=== PATIENT | male | born 1960 | race Caucasian/White ===

== ENCOUNTER → 2016-11-27 | Outpatient (CLI) | payer OTHER ==
--- NOTE | 2016-11-27 10:40 | CT ---
CT Left Lower Extremity With Attention to the Knee Indication: Pain. Preoperative evaluation for left total knee replacement. Technique: Spiral imaging was obtained through the left knee at 1.25 mm slice thickness along with sp iral imaging through the left hip and left ankle at 2.5 mm slice thickness. Data was transmitted for subsequent KELIN knee replacement. CT dose reduction techniques utilized. Findings: Left Hip: Mild osteoarthritic changes. Left Knee: Severe medial joint space narrowing with bone on bone contact and osteophytes. Moderate la teral joint space narrowing and moderate patellofemoral osteoarthritic changes. There is a Benton cyst posteriorly. Left Ankle: Mild osteoarthritic changes. Impression: 1. Severe medial joint space narrowing left knee and bone on bone changes. Moderate lateral joint spa ce narrowing left knee and patellofemoral osteoarthritic changes. 2. Data was transmitted for KELIN knee replacement surgery.
== END ==
LOC: FIMAGING 09:33
PROVIDERS: ATTEND Orthopaedic Surgery
DX: Z01.818 Encounter for other preprocedural examination (principal); M17.9 Osteoarthritis of knee, unspecified

== ENCOUNTER 2016-12-12 08:08 | Inpatient (IN) | payer OTHER ==
[2016-11-26 16:25] LABS: % IMMATURE GRANULYOCYTES 0.7 % (0.0-1.1); ABSOLUTE IMMATURE GRANULOCYTES 0.07 10^3/uL (0.00-0.10); ADD DIFF? NO; ADD MORPH? NO; ADD SCAN? NO; ATYPICAL LYMPHOCYTE FLAG 0 (0-99); FRAGMENT RBC FLAG 0 (0-99); HEMOGLOBIN 18.3 g/dL (13.7-17.5); LEFT SHIFT FLG 0 (0-99); LIPEMIA HEMOLYSIS FLAG 90 (0-99); MEAN CELL HEMOGLOBIN 35.2 pg (27.9-34.1); MEAN CELL HEMOGLOBIN CONCENTR. 36.6 g/dL (32.4-36.7); MEAN CELL VOLUME 96.2 fL (81.5-99.8); MEAN PLATELET VOLUME 9.8 fL (8.7-11.7); PLATELET CLUMPS FLAG 10 (0-99); PLATELET COUNT 195 10^3/uL (150-400); RED CELL DISTRIBUTION WIDTH 12.9 % (11.5-15.2)
[2016-11-26 16:49] LABS: ANION GAP 13 mEq/L (8-16); CALCIUM 10.2 mg/dL (8.5-10.4); CARBON DIOXIDE 27 mEq/l (22-31); CHLORIDE 99 mEq/L (97-110); CREATININE 0.7 mg/dL (0.7-1.3); GLOMERULAR FILTRATION RATE > 60; GLUCOSE 106 mg/dL (70-100); POTASSIUM 3.4 mEq/L (3.5-5.2); SODIUM 139 mEq/L (134-144)
[~2016-12-12 08:08] MED LIST: ACETAMINOPHEN 325 MG TAB PO ONE; CEFAZOLIN 2 GM/DEXTR 100 ML IV ONE; CHLORHEXIDINE GLUC HIBICLENS 118 ML BTL TP ONE; DEXAMETHASONE 4 MG/ML VIAL IVP ONE; FAMOTIDINE 20 MG TAB PO ONE; ROPI/epiNEPH/KETOROLAC JOINT COCKTAIL IU ONE; SKIN ADHESIVE (DERMABOND) 1 EACH TP ONE; TRANEXAMIC ACID 3,000 MG in NS 50 ML IRR ONE; TRANEXAMIC ACID 3,000 MG/50 ML BAG IRR ONE; VANCOMYCIN 1 GM VIAL IV ONE
[2016-12-12] MEDS ORDERED: LR 1,000 ML IV ONE (08:51)
[2016-12-12] MEDS ORDERED: LIDOCAINE 1% 5 ML SDV ID PRN (08:51)
[2016-12-12] MEDS ORDERED: CHLORHEXIDINE GLUC HIBICLENS 118 ML BTL TP ONE (09:30)
[2016-12-12] MEDS ORDERED: FAMOTIDINE 20 MG TAB PO ONE (09:30)
[2016-12-12] MEDS ORDERED: CEFAZOLIN 2 GM/DEXTR 100 ML IV ONE (09:30)
[2016-12-12] MEDS ORDERED: ACETAMINOPHEN 325 MG TAB PO ONE (09:30)
[2016-12-12] MEDS ORDERED: DEXAMETHASONE 4 MG/ML VIAL IVP ONE (09:30)
[2016-12-12 10:10] LABS: HEMOGLOBIN A1C 5.9 % (4.0-6.0)
[2016-12-12] MEDS ORDERED: MIDAZOLAM 2 MG/2 ML VIAL ONE (10:22)
[2016-12-12] MEDS ORDERED: LIDOCAINE 2% 5 ML SDV ONE (10:44)
[2016-12-12] MEDS ORDERED: PROPOFOL/EMULSION 500 MG/50 ML BOTTLE IV ONE ×2 (10:44→12:02)
[2016-12-12] MEDS ORDERED: fentaNYL 100 MCG/2 ML INJ ONE (11:00)
[2016-12-12] MEDS ORDERED: TEMAZEPAM 15 MG CAP PO PRN (12:08)
[2016-12-12] MEDS ORDERED: LACTULOSE 20 GM/30 ML UDCUP PO PRN (12:08)
[2016-12-12] MEDS ORDERED: MAGNESIUM HYDROXIDE 30 ML UDCUP PO PRN (12:08)
[2016-12-12] MEDS ORDERED: DIPHENOXYLATE/ATROPINE LOMOTIL 1 TAB PO PRN (12:08)
[2016-12-12] MEDS ORDERED: BISACODYL 10 MG SUPP PR PRN (12:08)
[2016-12-12] MEDS ORDERED: CYCLOBENZAPRINE 10 MG TAB PO PRN (12:08)
[2016-12-12] MEDS ORDERED: PROMETHAZINE HCL 25 MG/ML INJ IVP PRN (12:08)
[2016-12-12] MEDS ORDERED: PHARMACY PAIN CONSULT 1 EA MISC PRN (12:08)
[2016-12-12] MEDS ORDERED: ONDANSETRON 4 MG/2 ML VIAL IVP PRN (12:08)
[2016-12-12] MEDS ORDERED: diphenhydrAMINE 25 MG CAP PO PRN (12:08)
[2016-12-12] MEDS ORDERED: PROMETHAZINE HCL 25 MG SUPPR PR PRN (12:08)
[2016-12-12] MEDS ORDERED: METOCLOPRAMIDE 10 MG/2 ML VIAL IVP PRN (12:08)
[2016-12-12] MEDS ORDERED: ONDANSETRON DISINTEGRATING 4 MG TAB PO PRN (12:08)
[2016-12-12] MEDS ORDERED: POLYETHYLENE GLYCOL 3350 17 GM PKT PO PRN (12:08)
--- NOTE | 2016-12-12 12:08 | POSTOPPROG ---
Post Op Note Date of Operation: 12/12/16 Surgeon: Lola Yao Online Media Director: lulu yao Anesthesiologist: dr. redmond warm Anesthesia: Spinal, Other (Specify) (adductor canal block) Pre-op Diagnosis: left knee OA Post-op Diagnosis: same Indication: left knee pain due to OA that failed conservative measures Procedure: L medial knee arthroplasty, robot assisted Findings: severe medial knee OA Inf/Abcess present in the surg proc area at time of surgery?: No EBL: 50-100
[2016-12-12] MEDS ORDERED: LR 1,000 ML IV SCH (12:30)
--- NOTE | 2016-12-12 13:49 | DX ---
Left knee, 2 views. HISTORY: left knee pain. Status post left knee arthroplasty. Post operative evaluation. FINDINGS: Postsurgical changes as seen of a left total knee arthroplasty. There is good alignment in appearance. No evidence for periprosthetic lucency or fracture. There is appropriate soft tissue lange ge for the immediate postsurgical appearance. IMPRESSION: Post surgical changes of left total knee arthroplasty with good alignment and appearance.
[2016-12-12] MEDS ORDERED: ceFAZolin 2 GM/DEXTROSE 100 ML IV SCH (14:00)
[2016-12-12] MEDS: oxyCODONE IR 5 MG TAB PO PRN ×3 (15:12→23:48)
[2016-12-12] MEDS ORDERED: RED WINE 120 ML BOTTLE PO SCH (18:00)
[2016-12-12] MEDS: ACETAMINOPHEN 325 MG TAB PO SCH ×2 (18:27→23:46)
[2016-12-12] MEDS: ceFAZolin 2 GM/DEXTROSE 100 ML IV SCH (18:28)
[2016-12-12] MEDS: SENNOSIDES/DOCUSATE SODIUM TAB PO SCH (20:07)
[2016-12-12] MEDS: ASPIRIN 325 MG TAB PO SCH (20:07)
[2016-12-12] MEDS: GABAPENTIN 300 MG CAP PO SCH (20:07)
[2016-12-12] MEDS: HYOSCYAMINE SULFATE 0.375 MG TAB.SR PO SCH (20:07)
[2016-12-12] MEDS: FAMOTIDINE 20 MG TAB PO SCH (20:07)
[2016-12-12] MEDS ORDERED: INSULIN GLARGINE 100 UNITS/ML SYRINGE SC SCH (21:00)
[2016-12-12] MEDS ORDERED: OLANZapine 2.5 MG TAB PO SCH (21:00)
--- NOTE | 2016-12-13 01:57 | GOP ---
[f rep st] OPERATIVE REPORT DATE OF OPERATION: 12/12/2016 SURGEON: Chon Apple MD MANAGER HRIS: ELLA Newman ANESTHESIA: Spinal. PREOPERATIVE DIAGNOSIS: Left knee osteoarthritis. POSTOPERATIVE DIAGNOSIS: Left knee osteoarthritis. PROCEDURE PERFORMED: Left total knee replacement with computer navigation with robotic assist. FINDINGS: Severe medial osteoarthritis. Preop flexion contracture of 5 degrees. ESTIMATED BLOOD LOSS: 30 cc INDICATIONS: This is a 56-year-old male with severe and progressive pain and deformity of the left knee unresponsive to conservative care. Risks and benefits of the surgical intervention were explained in detail. DESCRIPTION OF PROCEDURE: The patient was brought to the operative room and placed on the table in the supine position. Spinal anesthesia was induced without difficulty. A pneumatic tourniquet was applied about the left proximal thigh, and the leg was prepped and draped in a sterile fashion. The leg dailey was applied. After exsanguination by elevation the tourniquet was inflated to 275 mm of mercury. Incision was made anterior medial from the tibial tuberosity to a point 2 cm proximal to the superior pole of the patella. Medial parapatellar arthrotomy was carried out from the superior pole of the patella and posteriorly in line with the fibers of the Type II VMO. The medial collateral ligament was elevated and the infrapatellar fat pad was resected. The patella was everted and the articular surface was excised. A 35 mm patellar button was placed. Attention was turned first to the distal aspect of the left femur. At 3 cm proximal to the medial rise of the femur, 2 percutaneous half pins were placed for fixation of the femoral array. In a similar fashion, 2 pins were placed anteromedial on the tibia for fixation of the tibial array. External land marking and registration of the hip center was performed without difficulty. Internal femoral and tibial registration was carried out without difficulty and the femoral and tibial checkpoints were placed and verified for accuracy. Attention was turned to the femur. The foot print for the size 5 femoral component was cut with the saw using the Taggo robotic system and verified for accuracy against the CT based plan. In a similar fashion, saw was used to cut the footprint for the size 6 tibial component using the Taggo system and verified for accuracy against the CT based plan. The tibial articular surface was excised without difficulty, followed by the intercondylar box cut. The knee was extended and the remnants of the medial and lateral meniscus were excised. The posterior capsule was injected with ropivacaine, epinephrine and Toradol. A size 6 MIS mini-keel tibial tray was positioned. Trial reduction was then carried out. There was excellent range of motion, alignment, and stability using the 9 mm polyethylene. All trials were then removed. The joint was thoroughly irrigated and carefully dried. Two packages of cement and 2 grams of vancomycin were mixed in the vacuum mixer and placed on the fixation surfaces of all surfaces of the components. The components were implanted and all excess cement was thoroughly removed. The permanent 9 mm polyethylene was placed without difficulty. The tourniquet was deflated and all bleeders were coagulated. The wound was thoroughly irrigated and closed using interrupted sutures of 2-0 Vicryl for the joint capsule. The subcu was closed with 3-0 Vicryl and the skin with 4-0 Monocryl. Dermabond and Steri-Strips were applied followed by a compressive dressing. The patient was then moved from the operating room to the recovery room in good condition, having tolerated the procedure well. /[id number]/MODL MTDD
[2016-12-13] MEDS: ceFAZolin 2 GM/DEXTROSE 100 ML IV SCH (02:04)
[2016-12-13 05:00] VITALS: TEMP 97.8
[2016-12-13 05:00] LABS: HEMATOCRIT 41.9 % (40.0-51.0)
[2016-12-13] MEDS: oxyCODONE IR 5 MG TAB PO PRN ×2 (05:11→08:46)
[2016-12-13] MEDS: ACETAMINOPHEN 325 MG TAB PO SCH (05:11)
[2016-12-13 05:28] LABS: ANION GAP 5 mEq/L (8-16); CALCIUM 8.4 mg/dL (8.5-10.4); CARBON DIOXIDE 27 mEq/l (22-31); CHLORIDE 105 mEq/L (97-110); CREATININE 0.6 mg/dL (0.7-1.3); GLOMERULAR FILTRATION RATE > 60; GLUCOSE 126 mg/dL (70-100); POTASSIUM 4.1 mEq/L (3.5-5.2); SODIUM 137 mEq/L (134-144)
[2016-12-13 07:32] VITALS: BP 117/77; PULSE 60; RESP 15
[2016-12-13] MEDS: GABAPENTIN 300 MG CAP PO SCH (08:42)
[2016-12-13] MEDS: ATORVASTATIN CALCIUM 20 MG TAB PO SCH ×2 (08:42→08:52)
[2016-12-13] MEDS: ASPIRIN 325 MG TAB PO SCH (08:43)
[2016-12-13] MEDS: FAMOTIDINE 20 MG TAB PO SCH (08:43)
[2016-12-13] MEDS: HYOSCYAMINE SULFATE 0.375 MG TAB.SR PO SCH (08:45)
[2016-12-13] MEDS: SENNOSIDES/DOCUSATE SODIUM TAB PO SCH (08:46)
[2016-12-13 08:48] VITALS: O2SAT 92
[2016-12-13] MEDS ORDERED: FLUoxetine 20 MG CAP PO SCH (09:00)
[2016-12-13] MEDS ORDERED: FUROSEMIDE 20 MG TAB PO SCH (09:00)
[2016-12-13] MEDS ORDERED: CANAGLIFLOZIN 100 MG PO SCH (09:00)
[2016-12-13] MEDS ORDERED: NON-FORMULARY NEW DRUG (Losartan/Hydrochlorothiazide [Hyzaar 100-12.5 Tablet] 1 EACH) PO SCH (09:00)
[2016-12-13] MEDS ORDERED: HYDROCHLOROTHIAZIDE 12.5 MG CAP PO SCH (09:00)
[2016-12-13] MEDS ORDERED: LOSARTAN POTASSIUM 50 MG TAB PO SCH ×2 (09:00)
[2016-12-13] MEDS ORDERED: ARIPiprazole 2 MG TAB PO SCH (09:00)
--- NOTE | 2016-12-13 10:20 | SOAPPROG ---
SOAP Progress Note Assessment/Plan: Assessment: Antoine is doing well POD 1 s/p L TKA 1. pain management: pain well controlled on oral pain medications. 2. VTE ppx: recommend ASA 325 mg daily. cont BONNIE puentes 3. Anemia: level is expected initially postop. asymptomatic. 4. d/c planning: d/c to home today. Plan: 12/13/16 10:19 Subjective: Sandeep is doing well today, denies SOB, chest pain and N/V. Objective: Vital Signs Temp Pulse Resp BP Pulse Ox 36.6 C 60 15 117/77 92 12/13/16 04:59 12/13/16 07:31 12/13/16 07:31 12/13/16 07:31 12/13/16 08:47 Laboratory Results 12/13/16 04:40 12/13/16 04:40 12/12/16 12/13/16 12/14/16 05:59 05:59 05:59 Intake Total 4560 Output Total 450 Balance 4110 LLE: incision dressing is clean and dry, NVI, +pf/df ICD10 Worksheet Patient Problems: Problems Problem Status Diagnosed Primary localized osteoarthritis of left knee Acute Alcohol dependence Active Diabetes mellitus type 2 Active Essential hypertension Active Hyperlipidemia Active
--- NOTE | 2016-12-18 11:21 | GDS ---
[f rep st] DISCHARGE SUMMARY ADMISSION DIAGNOSIS: Left knee osteoarthritis. DISCHARGE DIAGNOSIS: Left knee osteoarthritis. PROCEDURE: Left total knee arthroplasty, robot assisted. VTE PROPHYLAXIS: Aspirin recommended for 3 weeks daily. BRIEF DESCRIPTION OF HOSPITAL STAY: Patient was admitted for an elective joint arthroplasty. The pa tient tolerated the procedure well and has passed physical therapy. The patient was given appropriat e antibiotic prophylaxis and venous thromboembolism prophylaxis. The patient's pain was well control led on oral pain medication, patient was holding down food, and had urinated. Decision was made to d ischarge the patient. The patient was given post-operative prescriptions pre-operatively. PLAN: To follow up with Dr. Apple at [facility] in 2 to 3 weeks. /[id number]/MODL
== END 2016-12-13 11:47 | disposition home or self-care (01) | DRG 470 ==
LOC: F3N 08:08
PROVIDERS: ADMIT Orthopaedic Surgery; ATTEND Orthopaedic Surgery
PROC: 0SRD0J9 Replacement of Left Knee Joint with Synthetic Substitute, Cemented, Open Approach (ICD-10-PCS; principal; 2016-12-12 10:15)
PROC: 8E0Y0CZ Robotic Assisted Procedure of Lower Extremity, Open Approach (ICD-10-PCS; principal; 2016-12-12 10:15)
DX: M17.12 Unilateral primary osteoarthritis, left knee (principal); F17.210 Nicotine dependence, cigarettes, uncomplicated
CPT/HCPCS: 97110-GP; 97116-GP; 97161-GP; 97165-GO; C1713; J0171; J0690; J1100; J1815; J1885; J2250; J2704; J2795; J3010; J3370

== ENCOUNTER 2017-02-14 15:46 | Inpatient (IN) | payer OTHER ==
[2017-02-14] MEDS ORDERED: NS 1,000 ML IV ONE ×2 (16:00→17:44)
--- NOTE | 2017-02-14 16:08 | EDPHY ---
H & P Stated Complaint: etoh/hx pancreatitis/r upper abd pain/n/v Time Seen by Provider: 02/14/17 16:04 HPI/ROS: CHIEF COMPLAINT: Abdominal pain, vomiting. HISTORY OF PRESENT ILLNESS: The patient is a 56-year-old male with a history of alcohol abuse and pancreatitis who presents with epigastric abdominal pain and vomiting x10 that began 7 hours ago. These symptoms are similar to his previous pancreatitis episodes. He denies alleviating or provoking factors. The pain does not radiate. He admits alcohol use last night and has been drinking heavily over the past month. He admits decreased PO intake. No fever, chills, chest pain, shortness of breath, palpitations, diarrhea, urinary complaints, headache, lightheadedness. His last episode of pancreatitis was 4 years ago. He took oxycodone for the pain but vomited it up. REVIEW OF SYSTEMS: Aside from elements discussed in the HPI, a comprehensive 10-point review of systems was reviewed and is negative. PAST MEDICAL HISTORY: Diabetes, hypertension, hypercholesterolemia, depression , chronic pain, pancreatitis, left knee replacement. 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 VITAL SIGNS: Reviewed by me GENERAL: Well-developed, well-nourished, resting comfortably in no respiratory distress. HEENT: Atraumatic. Eyes: No icterus, no injection. Mouth: dry mucous membranes. No erythema or lesions. Neck: supple with no adenopathy. LUNGS: Clear to auscultation bilaterally, no wheezes, rhonchi or rales. CARDIAC: Regular rate and rhythm, no rubs, murmurs or gallops. ABDOMEN: Soft, bowel sounds normal, protuberant belly. Exquisite epigastric tenderness. No guarding or rebound. Hepatomegaly and splenomegaly. BACK: No CVA tenderness. EXTREMITIES: No trauma. No edema. Range of motion is normal throughout. NEURO: Alert and oriented, grossly nonfocal. SKIN: Warm and dry, no rash. PSYCHIATRIC: Normal mentation, no agitation. Portions of this note were transcribed by a medical office administrator. I personally performed a history, physical exam, medical decision making, and confirmed accuracy of information the transcribed note. Source: Patient Exam Limitations: No limitations - Personal History Current Tetanus/Diphtheria Vaccine: Yes - Medical/Surgical History Hx Asthma: No Hx Chronic Respiratory Disease: No Hx Diabetes: Yes Hx Cardiac Disease: No Hx Renal Disease: No Hx Cirrhosis: No Hx Alcoholism: Yes Hx HIV/AIDS: No Hx Splenectomy or Spleen Trauma: No Other PMH: DM, HTN, high cholesterol, depression, chronic pain pancreatitis/etoh - Social History Smoking Status: Current every day smoker Constitutional: Initial Vital Signs Temperature (C) 36.6 C 02/14/17 15:51 Heart Rate 81 02/14/17 15:51 Respiratory Rate 18 02/14/17 15:51 Blood Pressure 145/89 H 02/14/17 15:51 O2 Sat (%) 95 02/14/17 15:51 O2 Delivery Mode Room Air Allergies/Adverse Reactions: No Known Allergies Allergy (Verified 02/14/17 15:50) Home Medications: Medication Instructions Recorded ARIPiprazole [Abilify 2 mg (*)] 2 mg PO DAILY 11/05/16 Ascorbic Acid [Vitamin C 500 mg 500 mg PO DAILY 11/05/16 (*)] Atorvastatin Calcium [Lipitor 20 20 mg PO DAILY 11/05/16 mg (*)] Canagliflozin [Invokana] 100 mg PO DAILY 11/05/16 Exenatide Microspheres [Bydureon 2 mg SQ TH 11/05/16 Pen] FLUoxetine [Prozac 20 MG (*)] 40 mg PO DAILY 11/05/16 Folic Acid [Folic Acid 1 MG (*)] 1 mg PO DAILY 11/05/16 Furosemide [Lasix 20 MG (*)] 20 mg PO DAILY 11/05/16 Herbals/Supplements -Info Only 1 ea PO DAILY 11/05/16 Hyoscyamine Sulfate [Hyomax-Sr 0.375 mg PO BID 11/05/16 0.375 mg (*)] Losartan/Hydrochlorothiazide 1 each PO DAILY 11/05/16 [Hyzaar 100-12.5 Tablet] OLANZapine [ZyPREXA 2.5 mg (*)] 5 mg PO HS 11/05/16 Vitamin B Complex [B Complex] 1 each PO DAILY 11/05/16 Insulin Detemir [Levemir] 40 unit SQ HS 02/14/17 oxyCODONE IR [Oxycodone Ir (*)] 10 mg PO TID 02/14/17 Medical Decision Making ED Course/Re-evaluation: An IV was established and labs ordered. 1L IV saline administered for hydration , along with 1mg IV Dilaudid for pain, and 4mg IV Zofran for nausea. WBC elevated [place] 16.48. [place] [address]. Patient to be admitted for pancreatitis. 1806: Consulted with Dr. Claire, hospitalist. He accepts admission. Differential Diagnosis: After obtaining the patient's history and performing an examination, differential diagnosis for this patient's epigastric pain was considered included but was not limited to biliary colic, cholecystitis, bowel obstruction , peptic ulcer disease, pancreatitis, and gastroenteritis. Consult/Admit Bed Type: Dr. Sonu Claire, med surg - Data Points Laboratory Results: Laboratory Results 02/14/17 16:00 02/14/17 16:00 02/14/17 02/14/17 02/14/17 16:00 16:00 16:00 WBC 16.48 10^3/uL H 10^3/uL (3.80-9.50) RBC 5.41 10^6/uL 10^6/uL (4.40-6.38) Hgb 19.6 g/dL H g/dL (13.7-17.5) Hct 53.8 % H % (40.0-51.0) MCV 99.4 fL fL (81.5-99.8) MCH 36.2 pg H pg (27.9-34.1) MCHC 36.4 g/dL g/dL (32.4-36.7) RDW 11.9 % % (11.5-15.2) Plt Count 167 10^3/uL 10^3/uL (150-400) MPV 10.3 fL fL (8.7-11.7) Neut % (Auto) 90.5 % H % (39.3-74.2) Lymph % (Auto) 2.8 % L % (15.0-45.0) [place] % (Auto) 5.4 % % (4.5-13.0) Eos % (Auto) 0.0 % L % (0.6-7.6) Baso % (Auto) 0.4 % % (0.3-1.7) Nucleat RBC Rel Count 0.0 % % (0.0-0.2) Absolute Neuts (auto) 14.91 10^3/uL H 10^3/uL (1.70-6.50) Absolute Lymphs (auto) 0.46 10^3/uL L 10^3/uL (1.00-3.00) Absolute Monos (auto) 0.89 10^3/uL H 10^3/uL (0.30-0.80) Absolute Eos (auto) 0.00 10^3/uL L 10^3/uL (0.03-0.40) Absolute Basos (auto) 0.07 10^3/uL 10^3/uL (0.02-0.10) Absolute Nucleated RBC 0.00 10^3/uL 10^3/uL (0-0.01) Immature Gran % 0.9 % % (0.0-1.1) Immature Gran # 0.15 10^3/uL H 10^3/uL (0.00-0.10) Sodium 139 mEq/L mEq/L (134-144) Potassium 3.5 mEq/L mEq/L (3.5-5.2) Chloride 96 mEq/L L mEq/L (97-110) Carbon Dioxide 20 mEq/l L mEq/l (22-31) Anion Gap 23 mEq/L H mEq/L (8-16) BUN 28 mg/dL H mg/dL (7-23) Creatinine 1.1 mg/dL mg/dL (0.7-1.3) Estimated GFR > 60 Glucose 166 mg/dL H mg/dL (70-100) Calcium 9.8 mg/dL mg/dL (8.5-10.4) Total Bilirubin 1.5 mg/dL H mg/dL (0.1-1.4) Conjugated Bilirubin 0.7 mg/dL H mg/dL (0.0-0.5) Unconjugated Bilirubin 0.8 mg/dL mg/dL (0.0-1.1) AST 60 IU/L H IU/L (17-59) ALT 54 IU/L IU/L (21-72) Alkaline Phosphatase 83 IU/L IU/L (38-126) Total Protein 8.0 g/dL g/dL (6.3-8.2) Albumin 4.9 g/dL g/dL (3.5-5.0) Lipase 62698.0 IU/L H IU/L (23-300) Medications Given: Discontinued Medications Hydromorphone HCl (Dilaudid) 1 mg IVP EDNOW ONE Stop: 02/14/17 16:28 Last Admin: 02/14/17 16:39 Dose: 1 mg Hydromorphone HCl (Dilaudid) 1 mg IVP EDNOW ONE Stop: 02/14/17 17:44 Last Admin: 02/14/17 17:50 Dose: 1 mg Hydromorphone HCl (Dilaudid) 0.25 - 0.5 mg IVP Q2HRS PRN PRN Reason: Pain, Severe Unable to Take PO Stop: 02/24/17 18:35 Last Admin: 02/14/17 19:37 Dose: 0.5 mg Sodium Chloride (Ns) 1,000 mls @ 0 mls/hr IV ONCE ONE PRN Reason: Wide Open Stop: 02/14/17 16:01 Last Admin: 02/14/17 16:00 Dose: 1,000 mls Sodium Chloride (Ns) 1,000 mls @ 0 mls/hr IV ONCE ONE PRN Reason: Wide Open Stop: 02/14/17 17:45 Last Admin: 02/14/17 17:52 Dose: 1,000 mls Ondansetron HCl (Zofran) 4 mg IVP EDNOW ONE Stop: 02/14/17 16:29 Last Admin: 02/14/17 16:39 Dose: 4 mg Ondansetron HCl (Zofran) 4 mg IVP EDNOW ONE Stop: 02/14/17 17:45 Last Admin: 02/14/17 17:52 Dose: 4 mg Departure - Departure Disposition: [facility] Acute Clinical Impression: Pancreatitis Qualifiers: Chronicity: acute Pancreatitis type: alcohol induced Acute pancreatitis complication: unspecified Qualified Code(s): K85.20 - Alcohol induced acute pancreatitis without necrosis or infection Abdominal pain Qualifiers: Abdominal location: epigastric Qualified Code(s): R10.13 - Epigastric pain Condition: Fair Report Scribed for: Lay Singh Report Scribed by: Eric Garcias Date of Report: 02/14/17 Time of Report: 16:08
[2017-02-14 16:23] LABS: % IMMATURE GRANULYOCYTES 0.9 % (0.0-1.1); ABSOLUTE IMMATURE GRANULOCYTES 0.15 10^3/uL (0.00-0.10); ADD DIFF? NO; ADD MORPH? NO; ADD SCAN? NO; ATYPICAL LYMPHOCYTE FLAG 0 (0-99); FRAGMENT RBC FLAG 0 (0-99); HEMATOCRIT 53.8 % (40.0-51.0); HEMOGLOBIN 19.6 g/dL (13.7-17.5); LEFT SHIFT FLG 0 (0-99); LIPEMIA HEMOLYSIS FLAG 90 (0-99); MEAN CELL HEMOGLOBIN 36.2 pg (27.9-34.1); MEAN CELL HEMOGLOBIN CONCENTR. 36.4 g/dL (32.4-36.7); MEAN CELL VOLUME 99.4 fL (81.5-99.8); MEAN PLATELET VOLUME 10.3 fL (8.7-11.7); PLATELET CLUMPS FLAG 0 (0-99); PLATELET COUNT 167 10^3/uL (150-400); RED BLOOD CELL COUNT 5.41 10^6/uL (4.40-6.38); RED CELL DISTRIBUTION WIDTH 11.9 % (11.5-15.2)
[2017-02-14] MEDS ORDERED: HYDROmorphONE/DILAUDID 1 MG/ML SYR IVP ONE ×2 (16:27→17:43)
[2017-02-14] MEDS ORDERED: ONDANSETRON 4 MG/2 ML VIAL IVP ONE ×2 (16:28→17:44)
[2017-02-14 16:32] LABS: ANION GAP 23 mEq/L (8-16); CALCIUM 9.8 mg/dL (8.5-10.4); CARBON DIOXIDE 20 mEq/l (22-31); CHLORIDE 96 mEq/L (97-110); CREATININE 1.1 mg/dL (0.7-1.3); GLOMERULAR FILTRATION RATE > 60; GLUCOSE 166 mg/dL (70-100); POTASSIUM 3.5 mEq/L (3.5-5.2); SODIUM 139 mEq/L (134-144)
[2017-02-14 17:19] LABS: ALBUMIN 4.9 g/dL (3.5-5.0); BILIRUBIN,TOTAL 1.5 mg/dL (0.1-1.4); BILIRUBIN-CONJUGATED 0.7 mg/dL (0.0-0.5); BILIRUBIN-UNCONJUGATED 0.8 mg/dL (0.0-1.1)
[2017-02-14] MEDS ORDERED: ONDANSETRON 4 MG/2 ML VIAL IVP PRN (18:36)
[2017-02-14] MEDS ORDERED: HYDROmorphONE/DILAUDID 2 MG/ML INJ IVP PRN (18:36)
[2017-02-14] MEDS ORDERED: PROMETHAZINE HCL 25 MG SUPPR PR PRN (18:38)
[2017-02-14] MEDS ORDERED: D50W 25 GM/50 ML SYR IVP PRN (18:39)
--- NOTE | 2017-02-14 19:32 | GHP ---
[f rep st] HISTORY AND PHYSICAL DATE OF ADMISSION: 02/14/2017 CHIEF COMPLAINT: Abdominal pain, nausea, vomiting. HPI: This is a 56-year-old male with history of alcohol use, drinking approximately 100 mL of rum p er day, presented to the hospital today with acute onset of abdominal pain. The pain began abruptly at 9 o'clock this morning. It was described as a 6 to 7/10 sharp, epigastric pain that does not ra diate. The pain was improved with IV Dilaudid in the Emergency Department. The onset of pain he neal s had nausea and vomiting, and has been unable eat or drink. He denies any fevers or chills. He de nies any bloody emesis or coffee-grounds emesis. The patient does have a history of pancreatitis, l ast episode was in 2012. PAST MEDICAL HISTORY: 1. Pancreatitis diagnosed in 2012. 2. Hypertension. 3. Dyslipidemia. 4. Diabetes mellitus. PAST SURGICAL HISTORY: Left total knee arthroplasty. HOME MEDICATIONS: Reviewed, refer to [facility] for details. ALLERGIES: No known drug allergies. SOCIAL HISTORY: He lives in [place] with roommates. He has a 10 pack-year smoking history. He d rinks alcohol daily. He does say he is able to stop drinking and has periods of sobriety. FAMILY HISTORY: Negative for autoimmune disease or pancreatitis. REVIEW OF SYSTEMS: Comprehensive 10-point review of systems was done and was negative, except for a s mentioned in the HPI. PHYSICAL EXAM: VITAL SIGNS: Blood pressure 140/83, pulse 77, respiratory rate 20, O2 saturation 93 % on room air. Temperature afebrile. GENERAL: No acute distress. HEAD: Normocephalic, atraumati c. EYES: PERRLA. Sclerae anicteric. MOUTH: Moist mucous membranes. NECK: Supple. No lymphade nopathy. CARDIOVASCULAR: S1-S2. No JVD. No lower extremity edema. PULMONARY: Lungs are clear. No wheezes, rales, or rhonchi. ABDOMEN: Soft, distended with hypoactive bowel sounds. There is n o guarding or rebound tenderness. Negative Powers sign. EXTREMITIES: No clubbing or cyanosis. NE URO: Cranial nerves 2-12 grossly intact. No focal motor or sensory deficits. No tremor. SKIN: C lear. No rashes. No jaundice. DIAGNOSTICS: WBC 16.48, hemoglobin 19.6, hematocrit 53.8, platelets 167, sodium 139, potassium 3.5, chloride 96, BUN 28, creatinine 1.1, glucose 166, total bilirubin 1.5, conjugated bilirubin 0.7, T 60, ALT 54, lipase is 16,100. ASSESSMENT AND PLAN: This is a 56-year-old male with history of pancreatitis presenting with: 1. Acute pancreatitis, most likely alcohol related, but we will evaluate for biliary disease as alexx hurtado. His triglycerides were in the high normal range of 173 in 2012, and I will not repeat triglyceri de since I think this would be unlikely cause of his presentation. Plan: The patient will be admit nyla to the hospital, where he will be placed on bowel rest. We will start IV fluids with normal amelia ine at 250 cc/hour over the next 12 hours, and decrease if his condition is improving. We will also provide IV pain medications, as well as antiemetics. 2. Polycythemia that appears to be chronic upon review of his laboratory studies. Plan: Continue to monitor H and H daily after IV hydration. Recommend further outpatient followup. We will monito r with continuous pulse oximetry to evaluate for chronic hypoxemia. 3. History of hypertension. Plan: Continue home blood pressure medications and monitor. 4. History of type 2 diabetes mellitus. Plan: We will provide the patient with half of his usual home dose of glargine. We will hold his Invokana. Blood sugars will be monitored, and we will ml t with sliding scale insulin as needed. The patient will be admitted to the hospital under inpatient status. /[id number]/MODL
[2017-02-14] MEDS: NS 1,000 ML IV SCH (19:51)
[2017-02-14] MEDS: PANTOPRAZOLE SODIUM 40 MG in NS 100 ML IV SCH (19:51)
[2017-02-14] MEDS ORDERED: NALOXONE HCL 0.4 MG/ML INJ IVP PRN (20:21)
[2017-02-14] MEDS ORDERED: INSULIN GLARGINE 100 UNITS/ML SYRINGE SC SCH (21:00)
[2017-02-14] MEDS: HYDROmorphONE/DILAUDID 6 MG/30 ML PCA IV PRN (21:04)
[2017-02-14] MEDS: OLANZapine 2.5 MG TAB PO SCH (21:21)
[2017-02-14] MEDS: oxyCODONE IR 5 MG TAB PO SCH (21:22)
[2017-02-15] MEDS: NS 1,000 ML IV SCH (00:37)
[2017-02-15 05:07] LABS: % IMMATURE GRANULYOCYTES 0.6 % (0.0-1.1); ABSOLUTE IMMATURE GRANULOCYTES 0.08 10^3/uL (0.00-0.10); ADD DIFF? NO; ADD MORPH? NO; ADD SCAN? NO; ATYPICAL LYMPHOCYTE FLAG 0 (0-99); FRAGMENT RBC FLAG 0 (0-99); HEMATOCRIT 48.3 % (40.0-51.0); HEMOGLOBIN 16.9 g/dL (13.7-17.5); LEFT SHIFT FLG 0 (0-99); LIPEMIA HEMOLYSIS FLAG 90 (0-99); MEAN CELL HEMOGLOBIN 35.5 pg (27.9-34.1); MEAN CELL VOLUME 101.5 fL (81.5-99.8); PLATELET CLUMPS FLAG 10 (0-99); PLATELET COUNT 104 10^3/uL (150-400); RED BLOOD CELL COUNT 4.76 10^6/uL (4.40-6.38); RED CELL DISTRIBUTION WIDTH 11.8 % (11.5-15.2)
[2017-02-15 05:24] LABS: ALANINE AMINOTRANSFERASE 47 IU/L (21-72); ALBUMIN 3.6 g/dL (3.5-5.0); ALKALINE PHOSPHATASE 54 IU/L (38-126); ANION GAP 12 mEq/L (8-16); ASPARTATE AMINOTRANSFERASE 52 IU/L (17-59); BILIRUBIN,TOTAL 1.3 mg/dL (0.1-1.4); CARBON DIOXIDE 22 mEq/l (22-31); CHLORIDE 107 mEq/L (97-110); CREATININE 0.7 mg/dL (0.7-1.3); GLOMERULAR FILTRATION RATE > 60; GLUCOSE 86 mg/dL (70-100); POTASSIUM 3.6 mEq/L (3.5-5.2); SODIUM 141 mEq/L (134-144)
[2017-02-15] MEDS: INSULIN LISPRO 100 UNIT/ML SC SCH ×3 (08:00→18:03)
[2017-02-15] MEDS: oxyCODONE IR 5 MG TAB PO SCH ×3 (08:13→21:31)
[2017-02-15] MEDS: ENOXAPARIN 40 MG/0.4 ML SYR SC SCH (08:13)
[2017-02-15] MEDS: FLUoxetine 20 MG CAP PO SCH (08:13)
[2017-02-15] MEDS: ARIPiprazole 2 MG TAB PO SCH (08:14)
[2017-02-15] MEDS: PANTOPRAZOLE SODIUM 40 MG in NS 100 ML IV SCH (08:14)
[2017-02-15] MEDS ORDERED: chlordiazePOXIDE 25 MG CAP PO PRN (09:20)
[2017-02-15] MEDS ORDERED: chlordiazePOXIDE 25 MG CAP PO ONE (09:20)
--- NOTE | 2017-02-15 09:27 | HOSPPROG ---
Hospitalist Progress Note Assessment/Plan: 56 y/o male with h/o etoh abuse presents with #acute pancreatitis (likely etoh related) -decrease ivf from 250ml/hr to d51/2 ns with 20meq kcl -cont kennel hand -cont npo status given suspected ileus (diminished bowel sounds and absence of flatus) #resolved polycythemia likely from hemoconcentration in the setting of dehydration #DM2 on insulin with episode of hypoglycemia while npo -he was given half of his normal dose of basal insulin last night -will hold lantus and cont with correctional insulin #hypertension and tachycardia query etoh withdrawal -resume losartan -start ciwa with librium and monitor for signs of worsening withdrawal #tobacco use -discussed tobacco cessation especially since it is another known risk for pancreatitis Subjective: no flatus. improving abd pain. still feels like he needs the kennel hand. no appetite. no emesis Objective: Vital Signs Temp Pulse Resp BP Pulse Ox 37.2 C 97 15 142/87 H 92 02/15/17 05:48 02/15/17 05:48 02/15/17 05:48 02/15/17 05:48 02/15/17 05:48 Laboratory Results 02/15/17 04:45 02/15/17 04:45 02/14/17 02/15/17 02/16/17 05:59 05:59 05:59 Output Total 1000 Balance -1000 - Physical Exam Constitutional: no apparent distress, appears nourished, not in pain Cardiovascular: tachycardia, edema (trace lower leg), No systolic murmur, No JVD Respiratory: no respiratory distress, no rales or rhonchi, clear to auscultation , No inspiratory crackles, No rhonchi Gastrointestinal: distension, other (soft with diminished bowel sounds), No guarding, No rebound Genitourinary: no bladder fullness, no bladder tenderness, no renal bruits Neurologic: AAOx3, sensation intact bilaterally Psychiatric: interacting appropriately, not anxious, not encephalopathic, thought process linear ICD10 Worksheet Patient Problems: Problems Problem Status Onset Diabetes mellitus type 2 Active Hyperlipidemia Active Essential hypertension Active Alcohol dependence Active Primary localized osteoarthritis of left knee Acute Pancreatitis Acute Abdominal pain Acute
[2017-02-15] MEDS ORDERED: NON-FORMULARY NEW DRUG (Losartan/Hydrochlorothiazide [Hyzaar 100-12.5 Tablet] 1 EACH) PO SCH (09:30)
[2017-02-15] MEDS: D5W 1/2 NS W/ 20 KCl/L 1,000 ML IV SCH ×2 (09:55→18:15)
[2017-02-15] MEDS: HYDROmorphONE/DILAUDID 6 MG/30 ML PCA IV PRN (09:55)
[2017-02-15] MEDS: LOSARTAN POTASSIUM 50 MG TAB PO SCH (11:15)
[2017-02-15] MEDS: HYDROCHLOROTHIAZIDE 12.5 MG CAP PO SCH (11:16)
[2017-02-15] MEDS: OLANZapine 2.5 MG TAB PO SCH (21:28)
[2017-02-16] MEDS: HYDROmorphONE/DILAUDID 6 MG/30 ML PCA IV PRN (01:35)
[2017-02-16] MEDS: D5W 1/2 NS W/ 20 KCl/L 1,000 ML IV SCH ×2 (01:41→10:35)
[2017-02-16 04:30] LABS: % IMMATURE GRANULYOCYTES 1.3 % (0.0-1.1); ABSOLUTE IMMATURE GRANULOCYTES 0.17 10^3/uL (0.00-0.10); ADD DIFF? NO; ADD MORPH? NO; ADD SCAN? NO; ATYPICAL LYMPHOCYTE FLAG 0 (0-99); FRAGMENT RBC FLAG 0 (0-99); HEMATOCRIT 45.4 % (40.0-51.0); HEMOGLOBIN 15.5 g/dL (13.7-17.5); LEFT SHIFT FLG 10 (0-99); LIPEMIA HEMOLYSIS FLAG 90 (0-99); MEAN CELL HEMOGLOBIN 35.3 pg (27.9-34.1); MEAN CELL HEMOGLOBIN CONCENTR. 34.1 g/dL (32.4-36.7); MEAN CELL VOLUME 103.4 fL (81.5-99.8); MEAN PLATELET VOLUME 10.3 fL (8.7-11.7); PLATELET CLUMPS FLAG 20 (0-99); PLATELET COUNT 85 10^3/uL (150-400); RED BLOOD CELL COUNT 4.39 10^6/uL (4.40-6.38)
[2017-02-16 04:48] LABS: ALANINE AMINOTRANSFERASE 42 IU/L (21-72); ALBUMIN 2.8 g/dL (3.5-5.0); ALKALINE PHOSPHATASE 50 IU/L (38-126); ANION GAP 9 mEq/L (8-16); ASPARTATE AMINOTRANSFERASE 43 IU/L (17-59); BILIRUBIN,TOTAL 1.6 mg/dL (0.1-1.4); CALCIUM 7.7 mg/dL (8.5-10.4); CARBON DIOXIDE 19 mEq/l (22-31); CHLORIDE 104 mEq/L (97-110); CREATININE 0.7 mg/dL (0.7-1.3); GLOMERULAR FILTRATION RATE > 60; GLUCOSE 114 mg/dL (70-100); MAGNESIUM 2.2 mg/dL (1.6-2.3); POTASSIUM 3.4 mEq/L (3.5-5.2); SODIUM 132 mEq/L (134-144); TOTAL PROTEIN 5.3 g/dL (6.3-8.2)
[2017-02-16] MEDS ORDERED: oxyCODONE IR 5 MG TAB PO PRN (05:06)
[2017-02-16] MEDS: PANTOPRAZOLE SODIUM 40 MG in NS 100 ML IV SCH (09:10)
[2017-02-16] MEDS: oxyCODONE IR 5 MG TAB PO SCH (09:12)
[2017-02-16] MEDS: HYDROCHLOROTHIAZIDE 12.5 MG CAP PO SCH (09:13)
[2017-02-16] MEDS: ARIPiprazole 2 MG TAB PO SCH (09:13)
[2017-02-16] MEDS: FLUoxetine 20 MG CAP PO SCH (09:13)
[2017-02-16] MEDS: INSULIN LISPRO 100 UNIT/ML SC SCH ×2 (09:15→12:45)
[2017-02-16] MEDS: LOSARTAN POTASSIUM 50 MG TAB PO SCH (09:15)
[2017-02-16] MEDS: ENOXAPARIN 40 MG/0.4 ML SYR SC SCH (09:16)
--- NOTE | 2017-02-16 11:32 | HOSPPROG ---
Hospitalist Progress Note Assessment/Plan: 56 y/o male with h/o etoh abuse a/w acute pancreatitis acute pancreatitis (likely etoh related) ate dc IV pain meds and IVF trial of lunch resolved polycythemia likely from hemoconcentration in the setting of dehydration DM2 on insulin with episode of hypoglycemia while npo -he was given half of his normal dose of basal insulin last night -will hold lantus and cont with correctional insulin hypertension and tachycardia query etoh withdrawal -resume losartan -start ciwa with librium and monitor for signs of worsening withdrawal tachycardia: mild follow tobacco use -discussed tobacco cessation especially since it is another known risk for pancreatitis dispo: home if tolerates lunch > 30 minutes on dc Subjective: ate w minimal to no pain. hungry Objective: Vital Signs Temp Pulse Resp BP Pulse Ox 36.3 C 104 H 18 136/77 H 92 02/16/17 08:00 02/16/17 08:00 02/16/17 08:00 02/16/17 08:00 02/16/17 08:00 Laboratory Results 02/16/17 04:01 02/16/17 04:01 02/15/17 02/16/17 02/17/17 05:59 05:59 05:59 Intake Total 3673 500 Output Total 1000 2600 200 Balance -1000 1073 300 - Physical Exam Constitutional: no apparent distress, appears nourished Eyes: PERRL, anicteric sclera Ears, Nose, Mouth, Throat: moist mucous membranes, hearing normal Cardiovascular: regular rate and rhythym, no murmur, rub, or gallop, tachycardia Respiratory: no respiratory distress, no rales or rhonchi Gastrointestinal: normoactive bowel sounds, soft, non-tender abdomen, No guarding, No rebound Genitourinary: No lopez in urethra Skin: warm, normal color Musculoskeletal: full muscle strength Neurologic: AAOx3 ICD10 Worksheet Patient Problems: Problems Problem Status Onset Abdominal pain Acute Pancreatitis Acute Alcohol dependence Active Diabetes mellitus type 2 Active Essential hypertension Active Hyperlipidemia Active Primary localized osteoarthritis of left knee Acute
[2017-02-16 12:16] VITALS: BP 126/78; TEMP 99.6; O2SAT 93
[2017-02-16 12:54] VITALS: PULSE 104; RESP 18
--- NOTE | 2017-02-16 13:56 | GDS ---
[f rep st] DISCHARGE SUMMARY DISCHARGE DIAGNOSES: 1. Acute pancreatitis, recurrent, likely secondary to alcohol. 2. Type 2 diabetes. 3. Hypertension. 4. Chronic pain on chronic narcotics. 5. Dyslipidemia. 6. Hypertension. HOSPITAL COURSE: Please see admission history and physical by Dr. Sonu Claire. The patient presente d with abdominal pain, previous episodes of pancreatitis. He was noted to have an elevated lipase i n the setting of heavy alcohol use. The patient is managed with n.p.o. and IV fluids. On the 2nd h ospital day, his diet was advanced which he tolerated without increasing abdominal pain or nausea. His CIWA score was 2 at the time of discharge. DISCHARGE MEDICATIONS: He is discharged home on an unchanged medication regimen which is available in the electronic health record. /[id number]/MODL
[2017-02-18] MEDS ORDERED: THIAMINE HCL 100 MG TAB PO SCH (09:00)
== END 2017-02-16 14:44 | disposition home or self-care (01) | DRG 440 ==
LOC: OBSVTOIN 18:35 → F1N 18:42
PROVIDERS: ADMIT Family Medicine; ATTEND Family Medicine
DX: K85.20 Alcohol induced acute pancreatitis without necrosis or infection (principal); E11.9 Type 2 diabetes mellitus without complications; I10 Essential (primary) hypertension; G89.29 Other chronic pain; E78.5 Hyperlipidemia, unspecified; D75.1 Secondary polycythemia; Z72.0 Tobacco use
CPT/HCPCS: 96374; J1170; J1650; J1815; J2405

== ENCOUNTER 2017-02-19 15:25 | Inpatient (IN) | payer OTHER ==
--- NOTE | 2017-02-19 16:03 | EDPHY ---
H & P Time Seen by Provider: 02/19/17 15:40 HPI/ROS: CHIEF COMPLAINT: Cough HISTORY OF PRESENT ILLNESS: This patient is a 56 year old diabetic male who presents to the Emergency Department complaining of dry cough and shortness of breath beginning three days prior to arrival and worsening over time. He describes his cough as exacerbated with exertion and when supine. He also complains of low appetite, nausea, and diffuse body aches. He reports a subjective fever but denies chills. He did receive a flu shot in August. Medical history includes alcoholic pancreatitis for which he was recently admitted on 02/14 and discharged home on 02/16. He does describe mild lower abdominal pain but states that this is secondary to coughing and feels that it is dissimilar to his pancreatitis symptoms. REVIEW OF SYSTEMS: Constitutional: +subjective fever, no chills Eyes: No visual changes ENT: No sore throat Respiratory: +cough, +shortness of breath Cardiac: No chest pain Gastrointestinal: +nausea, no vomiting, no abdominal pain Genitourinary: No hematuria, no dysuria Musculoskeletal: +bilateral leg swelling at baseline Skin: No rash Neurological: No headache, no numbness, no weakness Psychiatric: No depression Past Medical/Surgical History: Insulin-dependent diabetes, hypertension, hyperlipidemia, alcoholic pancreatitis. PCP: Dr. Silas Hall Social History: Smokes daily. Works at [employer]. Smoking Status: Current every day smoker Physical Exam: General Appearance: Alert, non-toxic Eyes: Pupils equal and round, no conjunctival pallor or injection ENT, Mouth: Mucous membranes moist Neck: Normal inspection Respiratory: Lungs are clear to auscultation Cardiovascular: Regular tachycardia Gastrointestinal: Abdomen is distended and non-tender Neurological: A&O, nonfocal, normal gait Skin: Warm and dry, no rash Extremities: Nontender, 2+ pedal edema Psychiatric: Mood and affect normal Constitutional: Initial Vital Signs Temperature (C) 36.7 C 02/19/17 15:31 Heart Rate 111 H 02/19/17 15:31 Respiratory Rate 20 02/19/17 15:31 Blood Pressure 129/72 H 02/19/17 15:31 O2 Sat (%) 81 L 02/19/17 15:31 O2 Delivery Mode Nasal Cannula O2 (L/minute) 4 Allergies/Adverse Reactions: No Known Allergies Allergy (Verified 02/14/17 15:50) Home Medications: Medication Instructions Recorded ARIPiprazole [Abilify 2 mg (*)] 2 mg PO DAILY 11/05/16 Ascorbic Acid [Vitamin C 500 mg 500 mg PO DAILY 11/05/16 (*)] Atorvastatin Calcium [Lipitor 20 20 mg PO DAILY 11/05/16 mg (*)] Canagliflozin [Invokana] 100 mg PO DAILY 11/05/16 Exenatide Microspheres [Bydureon 2 mg SQ TH 11/05/16 Pen] FLUoxetine [Prozac 20 MG (*)] 40 mg PO DAILY 11/05/16 Folic Acid [Folic Acid 1 MG (*)] 1 mg PO DAILY 11/05/16 Furosemide [Lasix 20 MG (*)] 20 mg PO DAILY 11/05/16 Herbals/Supplements -Info Only 1 ea PO DAILY 11/05/16 Hyoscyamine Sulfate [Hyomax-Sr 0.375 mg PO BID 11/05/16 0.375 mg (*)] Losartan/Hydrochlorothiazide 1 each PO DAILY 11/05/16 [Hyzaar 100-12.5 Tablet] OLANZapine [ZyPREXA 2.5 mg (*)] 5 mg PO HS 11/05/16 Vitamin B Complex [B Complex] 1 each PO DAILY 11/05/16 Insulin Detemir [Levemir] 40 unit SQ HS 02/14/17 oxyCODONE IR [Oxycodone Ir (*)] 10 mg PO TID 02/14/17 Medical Decision Making - Diagnostics Imaging: Study: X-ray of the chest Indication: Cough, shortness of breath, hypoxemia Results: Chest x-ray was obtained. The results of the study are: 1. Suspect airways disease which is more prominent than on the previous study. Clinical correlation recommended to exclude pneumonia. 2. Mild cardiac enlargement without pulmonary edema. The study was read by the radiologist, Dr. Blaine Holt. I viewed the images myself on the PACS system. Study: CTA of the chest Indication: Elevated d-dimer, hypoxemia Results: CT angiogram of the chest was obtained. The results of the study are: 1. Negative for pulmonary embolus. 2. Suspect bilateral pneumonia. Pulmonary edema remains in the differential diagnosis. 3. Cardiomegaly with coronary artery disease, but without plethoric pulmonary vessels or pleural effusion. The study was read by the radiologist, Dr. Eamon Uribe. I viewed the images myself on the PACS system. ED Course/Re-evaluation: 56-year-old diabetic male presents with acute onset cough and shortness of breath with multiple associated complaints suspicious of infectious process including body aches, fatigue, nausea, and subjective fever. He is afebrile on arrival but tachycardic at 111 and hypoxemic at 81% on room air. Lungs are clear to auscultation on exam. Patient is placed on oxygen in the Emergency Department. IV established. Will proceed with chest x-ray and labs including flu screen and lactate. Labs obtained: Notably, the patient is hypokalemic at 2.6 as compared to 3.4 on 02/16. He does take Lasix without potassium supplementation. Lactate is within normal range at 1.4. WBC elevated at 10.87. 1645: IV and PO Potassium administered. No fluids will be administered at this time. Chest x-ray demonstrates cardiomegaly. D-dimer, troponin, and BNP ordered. Chest x-ray is also suggestive of pneumonia versus airways disease; will administer DuoNeb. Additional labs obtained: BNP elevated at 1210. Troponin is negative. D-dimer is elevated at 7.37. Will proceed with CTA of the chest. 1649: Consultation with Dr. Kaitlin Romero, hospitalist, who accepts admission to med/surg. 1745: CT results reported to me by Dr. Uribe, radiology. Echocardiogram ordered. Acute bronchitis/pneumonia more likely than pulmonary edema. Dr. Romero to order Cefepime IV for HCAP. Will proceed with admission. Differential Diagnosis: Differential diagnosis includes though it is not limited to pneumonia, pneumothorax, pulmonary embolism, aortic dissection, pericarditis, acute coronary syndrome. - Data Points Laboratory Results: Laboratory Results 02/19/17 16:00 02/19/17 16:00 02/19/17 02/19/17 02/19/17 16:20 16:00 16:00 WBC RBC Hgb Hct MCV MCH MCHC RDW Plt Count MPV Neut % (Auto) Lymph % (Auto) Monroe % (Auto) Eos % (Auto) Baso % (Auto) Nucleat RBC Rel Count Absolute Neuts (auto) Absolute Lymphs (auto) Absolute Monos (auto) Absolute Eos (auto) Absolute Basos (auto) Absolute Nucleated RBC Immature Gran % Immature Gran # D-Dimer 7.37 ug/mLFEU H ug/mLFEU (0.00-0.50) VBG Lactic Acid 1.4 mmol/L mmol/L (0.7-2.1) Sodium Potassium Chloride Carbon Dioxide Anion Gap BUN Creatinine Estimated GFR Glucose Calcium Troponin I NT-Pro-B Natriuret Pep Influenza A & B (PCR) NEGATIVE FOR FLU (NEGATIVE) 02/19/17 02/19/17 16:00 16:00 WBC 10.87 10^3/uL H 10^3/uL (3.80-9.50) RBC 4.54 10^6/uL 10^6/uL (4.40-6.38) Hgb 16.2 g/dL g/dL (13.7-17.5) Hct 44.3 % % (40.0-51.0) MCV 97.6 fL fL (81.5-99.8) MCH 35.7 pg H pg (27.9-34.1) MCHC 36.6 g/dL g/dL (32.4-36.7) RDW 12.0 % % (11.5-15.2) Plt Count 168 10^3/uL 10^3/uL (150-400) MPV 10.3 fL fL (8.7-11.7) Neut % (Auto) 84.1 % H % (39.3-74.2) Lymph % (Auto) 5.2 % L % (15.0-45.0) Monroe % (Auto) 8.9 % % (4.5-13.0) Eos % (Auto) 0.0 % L % (0.6-7.6) Baso % (Auto) 0.6 % % (0.3-1.7) Nucleat RBC Rel Count 0.0 % % (0.0-0.2) Absolute Neuts (auto) 9.14 10^3/uL H 10^3/uL (1.70-6.50) Absolute Lymphs (auto) 0.56 10^3/uL L 10^3/uL (1.00-3.00) Absolute Monos (auto) 0.97 10^3/uL H 10^3/uL (0.30-0.80) Absolute Eos (auto) 0.00 10^3/uL L 10^3/uL (0.03-0.40) Absolute Basos (auto) 0.07 10^3/uL 10^3/uL (0.02-0.10) Absolute Nucleated RBC 0.00 10^3/uL 10^3/uL (0-0.01) Immature Gran % 1.2 % H % (0.0-1.1) Immature Gran # 0.13 10^3/uL H 10^3/uL (0.00-0.10) D-Dimer VBG Lactic Acid Sodium 136 mEq/L mEq/L (134-144) Potassium 2.6 mEq/L L* mEq/L (3.5-5.2) Chloride 99 mEq/L mEq/L (97-110) Carbon Dioxide 24 mEq/l mEq/l (22-31) Anion Gap 13 mEq/L mEq/L (8-16) BUN 21 mg/dL mg/dL (7-23) Creatinine 0.8 mg/dL mg/dL (0.7-1.3) Estimated GFR > 60 Glucose 176 mg/dL H mg/dL (70-100) Calcium 8.7 mg/dL mg/dL (8.5-10.4) Troponin I 0.014 ng/mL ng/mL (0-0.034) NT-Pro-B Natriuret Pep 1210 pg/mL H pg/mL (0-125) Influenza A & B (PCR) Medications Given: Discontinued Medications Albuterol/Ipratropium (Duoneb) 3 ml IH EDNOW ONE Stop: 02/19/17 16:45 Last Admin: 02/19/17 17:32 Dose: 3 ml Potassium Chloride (Potassium Cl 10 Meq (Premix)) 50 mls @ 50 mls/hr IV EDNOW ONE Stop: 02/19/17 17:40 Last Admin: 02/19/17 17:19 Dose: 100 mls Potassium Chloride (Klor-Con) 20 meq PO EDNOW ONE Stop: 02/19/17 16:43 Last Admin: 02/19/17 16:55 Dose: 20 meq Departure - Departure Disposition: [facility] Acute Clinical Impression: Hypokalemia, Hypoxemia Pneumonia Qualifiers: Pneumonia type: due to unspecified organism Laterality: bilateral Lung location : unspecified part of lung Qualified Code(s): J18.9 - Pneumonia, unspecified organism Condition: Fair Report Scribed for: Ariela Duff Report Scribed by: Carie Hinton Date of Report: 02/19/17 Time of Report: 16:02 Physician Review and Approval Statement: 02/19/17 16:02 Portions of this note were transcribed by a hospitalist medical director. I personally performed a history, physical exam, medical decision making, and confirmed accuracy of information the transcribed note.
[2017-02-19 16:14] LABS: % IMMATURE GRANULYOCYTES 1.2 % (0.0-1.1); ABSOLUTE IMMATURE GRANULOCYTES 0.13 10^3/uL (0.00-0.10); ADD DIFF? NO; ADD MORPH? NO; ADD SCAN? NO; ATYPICAL LYMPHOCYTE FLAG 20 (0-99); FRAGMENT RBC FLAG 0 (0-99); HEMATOCRIT 44.3 % (40.0-51.0); HEMOGLOBIN 16.2 g/dL (13.7-17.5); LEFT SHIFT FLG 10 (0-99); LIPEMIA HEMOLYSIS FLAG 90 (0-99); MEAN CELL HEMOGLOBIN 35.7 pg (27.9-34.1); MEAN CELL HEMOGLOBIN CONCENTR. 36.6 g/dL (32.4-36.7); MEAN CELL VOLUME 97.6 fL (81.5-99.8); MEAN PLATELET VOLUME 10.3 fL (8.7-11.7); PLATELET CLUMPS FLAG 0 (0-99); PLATELET COUNT 168 10^3/uL (150-400); RED BLOOD CELL COUNT 4.54 10^6/uL (4.40-6.38)
[2017-02-19 16:28] LABS: ANION GAP 13 mEq/L (8-16); CALCIUM 8.7 mg/dL (8.5-10.4); CARBON DIOXIDE 24 mEq/l (22-31); CHLORIDE 99 mEq/L (97-110); CREATININE 0.8 mg/dL (0.7-1.3); GLOMERULAR FILTRATION RATE > 60; GLUCOSE 176 mg/dL (70-100); SODIUM 136 mEq/L (134-144)
[2017-02-19 16:39] LABS: POTASSIUM 2.6 mEq/L (3.5-5.2); TROPONIN I 0.014 ng/mL (0-0.034)
[2017-02-19] MEDS ORDERED: POTASSIUM Cl (KCl) 50 ML IV ONE (16:41)
[2017-02-19] MEDS ORDERED: POTASSIUM CL 10 MEQ TAB PO ONE (16:42)
[2017-02-19] MEDS ORDERED: IPRATROPIUM/ALBUTEROL 3 ML DEYVIAL IH ONE (16:44)
[2017-02-19] MEDS ORDERED: POTASSIUM Cl (KCl) 10 MEQ/100 ML BAG IV ONE (16:46)
[2017-02-19] MEDS ORDERED: POTASSIUM CL 10 MEQ TAB ONE (16:49)
[2017-02-19] MEDS ORDERED: ONDANSETRON 4 MG/2 ML VIAL IVP PRN (16:52)
[2017-02-19] MEDS ORDERED: ONDANSETRON DISINTEGRATING 4 MG TAB PO PRN (16:52)
[2017-02-19] MEDS ORDERED: IOPAMIDOL (ISOVUE 370) 100 ML BTL IV ONE (16:53)
--- NOTE | 2017-02-19 16:53 | CPEKG ---
Heart Rate: 89 RR Interval: 674 P-R Interval: 148 QRSD Interval: 100 QT Interval: 424 QTC Interval: 516 P [place]: 49 QRS [place]: 15 T Wave [place]: -13 EKG Severity - ABNORMAL ECG - EKG Impression: SINUS RHYTHM EKG Impression: NONSPECIFIC T ABNORMALITIES, INFERIOR LEADS EKG Impression: PROLONGED QT INTERVAL Electronically Signed By: Ariela Duff 19-Feb-2017 20:55:29
--- NOTE | 2017-02-19 18:37 | GHP ---
[f rep st] HISTORY AND PHYSICAL DATE OF ADMISSION: 02/19/2017 CHIEF COMPLAINT: Shortness of breath. HISTORY OF PRESENT ILLNESS: A 56-year-old male with a history of alcohol-related pancreatitis who w as hospitalized on 02/14/2017 to 02/16/2017 for medical management of pancreatitis. Patient reports returning home and feeling well for approximately 24 hours when he developed myalgias, arthralgias, subjective fevers, chills, shortness of breath and a cough that is relenting and nonproductive. Th e patient had missed several days of work due to his preceding hospitalization; therefore, forced va mself to go to work, but found he was having difficulty completing even the simplest tasks at his [employer] at [employer]. He left work early today to return to the hospital for evaluation. In the emergency department he is endorsing severe shortness of breath, cough that is nonproductive, abdominal discomfort with his cough, but no clear pleuritic chest pain. Denies hemoptysis. Report s myalgia, subjective fevers, mild headache. No vision changes. No diarrhea. No dysuria. No gabo turia or melena. No lower extremity edema or new rashes. No known sick contacts. PAST MEDICAL HISTORY: 1. Alcohol-related pancreatitis. 2. Type 2 diabetes. 3. Hypertension. 4. Chronic pain with continuous narcotic dependency. 5. Hyperlipidemia. SOCIAL HISTORY: The patient smokes three-quarters of a pack cigarettes a day. He said he has only had one drink since his discharge from the hospital. Denies illicit drugs or marijuana. FAMILY HISTORY: Negative for lung disease. ADVANCED DIRECTIVES: Patient is full cor, full tube. He would want his roommate to be his medical decision maker. REVIEW OF SYSTEMS: A 10-point review of systems is negative with the exception of that reported in the HPI. PHYSICAL EXAMINATION: VITAL SIGNS: Blood pressure 129/72, heart rate 111, respiratory rate 20, 81% on room air at . GENERAL: This is an obese male sitting up in bed. HEENT: Notable fo r dry mucous membranes. Eye exam is negative for any icterus. CARDIAC: Patient is tachycardic, bu t regular. PULMONARY: The patient has adequate pulmonary effort. No rales, rhonchi or wheezing ar e appreciated. GASTROINTESTINAL: The patient is obese, has positive bowel sounds. ABDOMEN: Soft. He is nontender to palpation all 4 quadrants. MUSCULOSKELETAL: Negative for any lower extremity edema. SKIN: Exam is negative for any rashes. NEUROLOGIC: The patient has no asterixis. Is aler t and oriented x3. Pleasant and cooperative on interview and examination. DATA: White count 10.8, hematocrit is 44.3, platelet count of 168, up from 85 at discharge. Potass ium is 2.6, creatinine 0.8, glucose 176. Troponin 0.014. BNP is 1210. Chest x-ray, which I personally reviewed and interpreted, shows no clear lobular infiltrate. Radiol quique comments on more prominent airways disease and cardiac enlargement without pulmonary edema. ASSESSMENT AND PLAN: This is a 56-year-old male presenting with shortness of breath. 1. Acute hypoxic respiratory failure. Based on the patient's clustering of symptoms, myalgias, sub jective fevers, coughs, suspect likely an infectious etiology, probably atypical or viral on the fac t that there was no lobular infiltrate on chest x-ray. However, with recent hospitalization he is c ertainly at risk for healthcare-associated pneumonia. Will check influenza. Check blood cultures. Check a D-dimer to rule out possible pulmonary embolism. Based on the results of these findings, c onsider empiric antibiotic coverage likely for HCAP initially until we see his clinical response. 2. Sinus tachycardia. We will fluid resuscitate as I suspect it is likely related to his acute ill ness; however, could be PE again. Will follow D-dimer results. 3. History of alcohol abuse. Patient denies any heavy recent use since disposition. Can monitor f or withdrawal symptoms. 4. Diabetes. He is mildly hyperglycemic at presentation. Again, may be acutely infected. Will co marcus with sliding scale insulin and continue his home medications when reconciled. 5. Hypokalemia. Suspect related to poor oral intake post discharge. Will aggressively resuscitate . 6. Hypertension. If becoming septic, certainly would be at risk for drop in blood pressures. Will monitor closely on home medications and fluid resuscitation. 7. Hyperlipidemia. We will continue his outpatient medications. 8. Prophylaxis with Lovenox. 9. Diet: Diabetic. DISPOSITION: I expect greater than 2 midnights as the patient is presenting with a new medical comp laint requiring diagnostics and treatment. I have discussed the case with the emergency room physician. Patient will be triaged to the medical -surgical floor for diagnostics and care. /[id number]/MODL
[2017-02-19] MEDS ORDERED: NON-FORMULARY NEW DRUG (Insulin Detemir [Levemir] 40 UNIT) SQ SCH (21:00)
[2017-02-19] MEDS: guaiFENesin 600 MG TAB.ER PO SCH (21:24)
[2017-02-19] MEDS: HYOSCYAMINE SULFATE 0.375 MG TAB.SR PO SCH (21:24)
[2017-02-19] MEDS: oxyCODONE IR 5 MG TAB PO SCH (21:24)
[2017-02-19] MEDS: OLANZapine 5 MG TAB PO SCH (21:25)
[2017-02-19] MEDS: INSULIN GLARGINE 100 UNITS/ML SYRINGE SC SCH (21:25)
[2017-02-19] MEDS: VANCOMYCIN 1.5 GM in D5W 250 ML IV SCH (21:34)
[2017-02-19] MEDS: guaiFENesin/CODEINE PHOS 10 ML UDCUP PO PRN (21:34)
[2017-02-19] MEDS: CEFEPIME HCL 2 GM in D5W 100 ML IV SCH (21:34)
[2017-02-20] MEDS ORDERED: AZITHROMYCIN IV 500 MG in D5W 250 ML IV ONE (00:42)
[2017-02-20] MEDS ORDERED: MAGNESIUM SULF 2 GM/WATER 50 ML IV ONE (00:45)
[2017-02-20] MEDS ORDERED: methylPREDNISolone SOD SUCC 125 MG/2 ML VIAL IVP ONE (00:53)
[2017-02-20] MEDS ORDERED: POTASSIUM Cl (KCl) 40 MEQ in NS 1,000 ML IV SCH (01:00)
[2017-02-20] MEDS: IPRATROPIUM/ALBUTEROL 3 ML DEYVIAL IH SCH ×5 (01:18→23:50)
[2017-02-20 01:27] LABS: BASE EXCESS 1.3 mEq/L (-2.5-2.5); BICARBONATE 24 mEq/L (22-26); MEASURED OXYGEN SATURATION 96 % (92-95); PCO2 35 mmHg (34-38); PO2 84 mmHg (65-75); TCO2 25 mEq/L (23-27)
--- NOTE | 2017-02-20 01:49 | HOSPPROG ---
Hospitalist Progress Note Assessment/Plan: Critical care spent with patient and nurse at bedside, addressing the following issues: - sepsis screen triggered with worsening tachypnea and tachycardia as well as suspected multifocal pneumonia on chest CT without any evidence of pulmonary embolism - oxygen requirements increased from 2 L to 6 L and respiratory rate currently 40 breaths per minute, patient visibly sweaty, poor inspiratory air movement, poor expiratory air movement without overt wheezes or bronchial breath sounds, rhonchi present when patient is able to take a deep breath, patient is currently mentating well - reviewed Dr. Romero's history and physical, patient's labs, patient's vital signs - I suspect the patient has a significant multifocal pneumonia and he should be covered for atypical organisms, will initiate azithromycin IV, continue him on his previously dosed vancomycin and cefepime - patient reports that he is a smoker and he is at risk for reactive airway process sees, unable to get a very good expiratory air movement exam, will empirically dose high-dose IV steroids and continue Solu-Medrol 60 mg q.6 hours IV as well as scheduled duo nebs - ABG obtained, no evidence of carbon dioxide retention - arterial lactate obtained, currently normal, troponin obtained, currently normal - provide him with Tessalon Perles as needed - send sputum culture, send urine Legionella, send urine strep - monitor respiratory status closely and if his oxygen requirements continued to rise or he has worsening tachypnea, will consider high-flow Vapotherm versus BiPAP Objective: Vital Signs Temp Pulse Resp BP Pulse Ox 36.7 C 84 36 H 136/80 H 95 02/19/17 22:58 02/20/17 01:22 02/20/17 01:22 02/19/17 22:58 02/20/17 01:22 ICD10 Worksheet Patient Problems: Problems Problem Status Onset Diabetes mellitus type 2 Active Hyperlipidemia Active Essential hypertension Active Alcohol dependence Active Primary localized osteoarthritis of left knee Acute Pancreatitis Acute Abdominal pain Acute Hypokalemia Acute Hypoxemia Acute Pneumonia Acute
[2017-02-20] MEDS: BENZONATATE 100 MG CAP PO PRN ×3 (02:03→18:32)
[2017-02-20] MEDS: guaiFENesin/CODEINE PHOS 10 ML UDCUP PO PRN ×3 (03:42→18:32)
[2017-02-20] MEDS: ACETAMINOPHEN 325 MG TAB PO PRN ×2 (03:43→20:36)
[2017-02-20 05:27] LABS: % IMMATURE GRANULYOCYTES 1.5 % (0.0-1.1); ABSOLUTE IMMATURE GRANULOCYTES 0.14 10^3/uL (0.00-0.10); ADD DIFF? NO; ADD MORPH? NO; ADD SCAN? NO; ATYPICAL LYMPHOCYTE FLAG 30 (0-99); FRAGMENT RBC FLAG 0 (0-99); HEMATOCRIT 41.8 % (40.0-51.0); HEMOGLOBIN 14.9 g/dL (13.7-17.5); LEFT SHIFT FLG 40 (0-99); LIPEMIA HEMOLYSIS FLAG 90 (0-99); MEAN CELL HEMOGLOBIN 34.3 pg (27.9-34.1); MEAN CELL HEMOGLOBIN CONCENTR. 35.6 g/dL (32.4-36.7); MEAN CELL VOLUME 96.3 fL (81.5-99.8); MEAN PLATELET VOLUME 10.3 fL (8.7-11.7); PLATELET CLUMPS FLAG 0 (0-99); PLATELET COUNT 168 10^3/uL (150-400); RED BLOOD CELL COUNT 4.34 10^6/uL (4.40-6.38); RED CELL DISTRIBUTION WIDTH 12.1 % (11.5-15.2)
[2017-02-20 05:33] LABS: ANION GAP 10 mEq/L (8-16); CALCIUM 8.6 mg/dL (8.5-10.4); CARBON DIOXIDE 24 mEq/l (22-31); CHLORIDE 101 mEq/L (97-110); CREATININE 0.6 mg/dL (0.7-1.3); GLOMERULAR FILTRATION RATE > 60; GLUCOSE 120 mg/dL (70-100); MAGNESIUM 2.8 mg/dL (1.6-2.3); POTASSIUM 3.3 mEq/L (3.5-5.2); SODIUM 135 mEq/L (134-144)
[2017-02-20 05:41] LABS: TROPONIN I < 0.012 ng/mL (0-0.034)
[2017-02-20] MEDS: methylPREDNISolone SOD SUCC 125 MG/2 ML VIAL IVP SCH ×4 (05:45→23:34)
[2017-02-20] MEDS: CEFEPIME HCL 2 GM in D5W 100 ML IV SCH ×3 (05:46→21:11)
[2017-02-20] MEDS: VANCOMYCIN 1.5 GM in D5W 250 ML IV SCH ×2 (06:37→19:15)
[2017-02-20] MEDS ORDERED: PROTOCOL POTASSIUM 1 DOSE MISC PRN ×2 (07:42→11:21)
[2017-02-20] MEDS: ATORVASTATIN CALCIUM 20 MG TAB PO SCH (08:33)
[2017-02-20] MEDS: FOLIC ACID 1 MG TAB PO SCH (08:33)
[2017-02-20] MEDS: ASCORBIC ACID 500 MG TAB PO SCH (08:33)
[2017-02-20] MEDS: FLUoxetine 20 MG CAP PO SCH (08:33)
[2017-02-20] MEDS: ARIPiprazole 2 MG TAB PO SCH (08:33)
[2017-02-20] MEDS: VITAMIN B COMPLEX 1 EA CAP/TAB PO SCH (08:33)
[2017-02-20] MEDS: ENOXAPARIN 40 MG/0.4 ML SYR SC SCH (08:34)
[2017-02-20] MEDS: AZITHROMYCIN IV 500 MG in D5W 250 ML IV SCH (08:34)
[2017-02-20] MEDS: oxyCODONE IR 5 MG TAB PO SCH ×3 (08:38→21:11)
[2017-02-20] MEDS: guaiFENesin 600 MG TAB.ER PO SCH ×2 (08:38→20:35)
[2017-02-20] MEDS: HYOSCYAMINE SULFATE 0.375 MG TAB.SR PO SCH ×2 (08:39→20:36)
[2017-02-20] MEDS: Canagliflozin [Invokana] 100 MG PO SCH (08:43)
[2017-02-20] MEDS ORDERED: Herbals/Supplements -Info Only PO SCH (09:00)
--- NOTE | 2017-02-20 10:05 | HOSPPROG ---
Hospitalist Progress Note Assessment/Plan: # acute hypoxic resp failure - much worse overnight; suspect d/t pna/COPD exacerbation - transfer to SDU # COPD exacerbation - cont abx, steroids, BDs, mucinex # HCAP - cont vanc/cefepime, agree with azith addition - check viral PCR and sputum cx # etOH use - has significancy reduced recently; no e/o withdrawal currently # recent etOH pancreatitis # DM2 - cont glargine, follow on steroids # chronic pain on continuous narcotics ## 45 minutes of floor critical care time spent with acute resp failure Subjective: resp status much worse overnight Objective: Vital Signs Temp Pulse Resp BP Pulse Ox 36.6 C 82 36 H 145/85 H 94 02/20/17 07:21 02/20/17 07:21 02/20/17 08:26 02/20/17 07:21 02/20/17 08:26 Laboratory Results 02/20/17 04:17 02/20/17 04:17 02/19/17 02/20/17 02/21/17 05:59 05:59 05:59 Intake Total 200 Output Total 300 Balance 200 -300 - Physical Exam Constitutional: uncomfortable Cardiovascular: regular rate and rhythym, no murmur, rub, or gallop Respiratory: reduced air movement, bronchial breath sounds (R base), respiratory distress (moderate), other (tachypneic; decreased bilat BS in bases) , No expiratory wheeze Gastrointestinal: normoactive bowel sounds, soft, non-tender abdomen, no palpable masses ICD10 Worksheet Patient Problems: Problems Problem Status Onset Diabetes mellitus type 2 Active Hyperlipidemia Active Essential hypertension Active Alcohol dependence Active Primary localized osteoarthritis of left knee Acute Pancreatitis Acute Abdominal pain Acute Hypokalemia Acute Hypoxemia Acute Pneumonia Acute
[2017-02-20] MEDS: POTASSIUM Cl (KCl) 100 ML IV SCH ×3 (11:38→15:42)
--- NOTE | 2017-02-20 12:22 | ECHO ---
[id number] + + [address] : : [place] [address] : : [phone] + + Adult Echocardiographic Report + --------+ :Name: ETHAN ERICKSON PStudy Date: 02/20/2017 09:57 AM : : Hospital Admission Number: [id number] Locat ion: 374: :: 1960 Gender: Male Height: 70 in : :Age: 56 yrs Race: WH Weight: 210 l b : :Reason For Study: Eval LV Fx : : BSA: 2.1 mete rs2 : :History: Hypoxia : + --------+ MMode/2D Measurements \T\ Calculations IVSd: 0.98 cm RVDd: 4.7 cm FS: 45.6 % Ao root diam: 3.3 cm LVPWd: 1.1 cm LVIDd: 5.3 cm EDV(Teich): 136.8 ml ACS: 1.9 cm LVIDs: 2.9 cm ESV(Teich): 32.1 ml EF(Teich): 76.6 % Normal Measurement Values: + + :LVIDd (3.5-5.7cm) IVSd (0.6-1.1cm) LVPWd (0.6-1.1cm) Aortic Root (2.0-3.7cm)Left Atrium (1.5-4.0cm): :LV Vol(d) (76-115ml) LV Vol(s) (29-48ml) Ejec Fraction (50-65%)PV Kirk (0.6- 1.2m/s) TV Kirk (0.4-1.0m/s) : :MV E Kirk (0.8-1.0m/s)MV A Kirk (0.3-1.0m/s)LVOT Kirk (0.7-1.2m/s) Asc Ao Kirk ( 0.9-1.8m/s) : + + Doppler Measurements \T\ Calculations MV E max kirk: Ao V2 max: LV V1 max: PA V2 max: 84.9 cm/sec 159.9 cm/sec 102.7 cm/sec 89.0 cm/sec MV A max kirk: Ao max PG: LV V1 max PG: PA max P.1 cm/sec 10.2 mmHg 4.2 mmHg 3.2 mmHg MV E/A: 1.2 TR max kirk: 321.2 cm/sec TR max P.3 mmHg RAP systole: 5.0 mmHg RVSP(TR): 46.3 mmHg Left Ventricle The left ventricle is normal in size. There is normal left ventricular wall thickness. The left ventricular ejection fraction is normal. There is Doppler evidence for diastolic dysfunction. Ejection Fraction = 77%. The left ventricular wall motion is normal. Right Ventricle The right ventricle is mildly dilated. Atria The left atrial size is normal. Right atrial size is normal. Mitral Valve The mitral valve is normal in structure and function. There is no evidence of mitral valve prolapse. There is no mitral valve stenosis. There is trace mitral regurgitation. Tricuspid Valve Normal tricuspid valve. There is trace to mild tricuspid regurgitation. Right ventricular systolic pressure is 47mmHg. There is Doppler evidence for mild to moderate pulmonary hypertension. Aortic Valve The aortic valve is normal in structure and function. There is no aortic stenosis. There is no aortic insufficiency. Pulmonic Valve The pulmonic valve is normal in structure and function. There is no pulmonic valvular regurgitation. Great Vessels The aortic root is normal size. Pericardium/Pleural There is no pericardial effusion. Conclusion A complete two-dimensional transthoracic echocardiogram was performed (2D, M-mode, Doppler and color flow Doppler). The left ventricular ejection fraction is normal. There is Doppler evidence for diastolic dysfunction. Ejection Fraction = 77%. The left ventricular wall motion is normal. The mitral valve is normal in structure and function. There is trace mitral regurgitation. There is trace to mild tricuspid regurgitation. Right ventricular systolic pressure is 47mmHg. The aortic valve is normal in structure and function. There is no pericardial effusion. There is Doppler evidence for mild to moderate pulmonary hypertension. Final Reading Physician: Yolanda Mccarthy signed on 02/20/2017 12:21 PM Ordering Physician: ROSITA MITCHELL Performed By: Aidan Glover, CS
[2017-02-20] MEDS ORDERED: D50W 25 GM/50 ML SYR IVP PRN (13:11)
[2017-02-20] MEDS: INSULIN LISPRO 100 UNIT/ML SC SCH (18:33)
[2017-02-20] MEDS: OLANZapine 5 MG TAB PO SCH (20:36)
[2017-02-20] MEDS: INSULIN GLARGINE 100 UNITS/ML SYRINGE SC SCH (20:42)
[2017-02-20 21:41] LABS: POTASSIUM 3.5 mEq/L (3.5-5.2)
[2017-02-21] MEDS: IPRATROPIUM/ALBUTEROL 3 ML DEYVIAL IH SCH ×5 (00:11→23:34)
[2017-02-21] MEDS: guaiFENesin/CODEINE PHOS 10 ML UDCUP PO PRN ×4 (00:26→20:12)
[2017-02-21] MEDS: POTASSIUM Cl (KCl) 100 ML IV SCH ×7 (01:00→23:08)
[2017-02-21] MEDS: CEFEPIME HCL 2 GM in D5W 100 ML IV SCH ×3 (05:34→22:06)
[2017-02-21] MEDS: methylPREDNISolone SOD SUCC 125 MG/2 ML VIAL IVP SCH ×2 (05:34→11:54)
[2017-02-21 05:58] LABS: % IMMATURE GRANULYOCYTES 1.6 % (0.0-1.1); ABSOLUTE IMMATURE GRANULOCYTES 0.27 10^3/uL (0.00-0.10); ADD DIFF? NO; ADD MORPH? NO; ADD SCAN? NO; ATYPICAL LYMPHOCYTE FLAG 30 (0-99); FRAGMENT RBC FLAG 0 (0-99); HEMATOCRIT 42.6 % (40.0-51.0); HEMOGLOBIN 15.3 g/dL (13.7-17.5); LEFT SHIFT FLG 30 (0-99); LIPEMIA HEMOLYSIS FLAG 90 (0-99); MEAN CELL HEMOGLOBIN 35.5 pg (27.9-34.1); MEAN CELL HEMOGLOBIN CONCENTR. 35.9 g/dL (32.4-36.7); MEAN CELL VOLUME 98.8 fL (81.5-99.8); MEAN PLATELET VOLUME 10.2 fL (8.7-11.7); PLATELET CLUMPS FLAG 0 (0-99); PLATELET COUNT 206 10^3/uL (150-400); RED BLOOD CELL COUNT 4.31 10^6/uL (4.40-6.38)
[2017-02-21 06:28] LABS: ANION GAP 9 mEq/L (8-16); CALCIUM 8.4 mg/dL (8.5-10.4); CARBON DIOXIDE 23 mEq/l (22-31); CHLORIDE 105 mEq/L (97-110); CREATININE 0.6 mg/dL (0.7-1.3); GLOMERULAR FILTRATION RATE > 60; GLUCOSE 231 mg/dL (70-100); MAGNESIUM 2.5 mg/dL (1.6-2.3); POTASSIUM 3.5 mEq/L (3.5-5.2); SODIUM 137 mEq/L (134-144)
[2017-02-21] MEDS: BENZONATATE 100 MG CAP PO PRN ×2 (06:42→20:12)
[2017-02-21] MEDS: VANCOMYCIN 1.5 GM in D5W 250 ML IV SCH ×2 (06:42→17:42)
[2017-02-21] MEDS: Canagliflozin [Invokana] 100 MG PO SCH (07:58)
[2017-02-21] MEDS: FOLIC ACID 1 MG TAB PO SCH (08:15)
[2017-02-21] MEDS: ASCORBIC ACID 500 MG TAB PO SCH (08:15)
[2017-02-21] MEDS: ARIPiprazole 2 MG TAB PO SCH (08:15)
[2017-02-21] MEDS: AZITHROMYCIN IV 500 MG in D5W 250 ML IV SCH (08:16)
[2017-02-21] MEDS: guaiFENesin 600 MG TAB.ER PO SCH ×2 (08:16→20:12)
[2017-02-21] MEDS: ATORVASTATIN CALCIUM 20 MG TAB PO SCH (08:16)
[2017-02-21] MEDS: ENOXAPARIN 40 MG/0.4 ML SYR SC SCH (08:16)
[2017-02-21] MEDS: FLUoxetine 20 MG CAP PO SCH (08:16)
[2017-02-21] MEDS: INSULIN LISPRO 100 UNIT/ML SC SCH ×3 (08:17→17:37)
[2017-02-21] MEDS: oxyCODONE IR 5 MG TAB PO SCH ×3 (08:21→22:05)
[2017-02-21] MEDS: HYOSCYAMINE SULFATE 0.375 MG TAB.SR PO SCH ×2 (08:21→20:12)
[2017-02-21] MEDS: VITAMIN B COMPLEX 1 EA CAP/TAB PO SCH (08:21)
--- NOTE | 2017-02-21 13:18 | HOSPPROG ---
Hospitalist Progress Note Assessment/Plan: # acute hypoxic resp failure - stable overnight, still very high O2 requirements # COPD exacerbation - cont abx, steroids, BDs, mucinex # HCAP - cont vanc (GPC in sputum)/cefepime, agree with azith addition - check viral PCR - recheck CXR tomorrow am # etOH use - has significancy reduced recently; no e/o withdrawal currently # recent etOH pancreatitis # DM2 - cont glargine (increase dose), follow on steroids # chronic pain on continuous narcotics ## high risk Subjective: still feels very SOB Objective: Vital Signs Temp Pulse Resp BP Pulse Ox 37 C 76 21 H 129/67 H 93 02/21/17 11:43 02/21/17 11:52 02/21/17 11:52 02/21/17 11:52 02/21/17 11:52 Microbiology 02/20/17 00:41 - Final Sputum, Expectorated Laboratory Results 02/21/17 05:35 02/21/17 05:35 02/20/17 02/21/17 02/22/17 05:59 05:59 05:59 Intake Total 200 2537 Output Total 2024 122 Balance 200 512 -1225 - Physical Exam Constitutional: uncomfortable Cardiovascular: regular rate and rhythym, no murmur, rub, or gallop Respiratory: other (tachypneic, L basilar rales, mod resp distress, no rhonchi) Gastrointestinal: normoactive bowel sounds, soft, non-tender abdomen, no palpable masses ICD10 Worksheet Patient Problems: Problems Problem Status Onset Diabetes mellitus type 2 Active Hyperlipidemia Active Essential hypertension Active Alcohol dependence Active Primary localized osteoarthritis of left knee Acute Pancreatitis Acute Abdominal pain Acute Hypokalemia Acute Hypoxemia Acute Pneumonia Acute
[2017-02-21] MEDS: INSULIN GLARGINE 100 UNITS/ML SYRINGE SC SCH ×2 (14:19→22:06)
--- NOTE | 2017-02-21 17:01 | GCON ---
[f rep st] CONSULTATION PULMONARY/CRITICAL CARE CONSULTATION REFERRING PHYSICIAN: Fuentes Quan MD REASON FOR REFERRAL: Evaluation and management of pneumonia and hypoxemia. HISTORY: The patient is a 56-year-old male, who was recently admitted for alcohol related pancreatitis, discharged on 02/16/2017 after a 2-day hospitalization. He felt well for about a day, but then developed some body aches, chills, fevers, shortness of breath and severe nonproductive cough. Because of this, he presented to the hospital 2 days ago, where he was started empirically on cefepime and vancomycin. Then azithromycin was added. He continues to have fairly high oxygen needs, but feels that his cough is getting a bit better. PAST MEDICAL HISTORY: 1. Alcohol-related pancreatitis. 2. Type 2 diabetes. 3. Hypertension. 4. Chronic pain. MEDICATIONS AT TIME OF ADMISSION: Zyprexa, Lasix, Prozac, Lipitor, Invokana, Abilify, Hyzaar, Levemir and oxycodone. ALLERGIES: None. SOCIAL HISTORY: The patient smokes 3/4 of a pack of cigarettes daily. He has essentially stopped drinking since his hospitalization. He works at [employer]. FAMILY HISTORY: Negative. REVIEW OF SYSTEMS: A 10-point review of systems adds nothing to the history of present illness. PHYSICAL EXAMINATION: GENERAL: The patient is awake, alert, and in just mild respiratory distress with some tachypnea. His blood pressure is 131/69, heart rate is 78, his respiratory rate is 25, his oxygen saturations are 92% on 9 L. HEENT: Normocephalic and atraumatic. No icterus. NECK: No JVD. Trachea midline. CHEST: He has some basilar rales. CARDIAC: Regular rate and rhythm without murmur. ABDOMEN: Soft, nontender. Bowel sounds are present. EXTREMITIES: No clubbing, cyanosis, or edema. NEURO: The patient is awake, alert, and oriented with no focal motor weakness. LABS: White blood count is 16.5, up from 9.3 yesterday. Hemoglobin is 15.3. A chemistry group is remarkable only for a glucose of 231. Arterial blood gas yesterday shows a pH of 7.45 with a pO2 of 84, CO2 of 35, and a bicarbonate of 25. D-dimer is 7.4. An influenza PCR is negative. Legionella and strep pneumoniae antigens are pending. A CT scan of the chest shows patchy alveolar infiltrates bilaterally affecting all lobes. Images reviewed. An angiogram was negative for pulmonary embolism. ASSESSMENT: 1. Healthcare-associated pneumonia. The patient presents with patchy infiltrates, fever and constitutional symptoms as well as cough and hypoxemia following recent hospitalization. The CT scan appearance is most consistent with a viral or atypical pneumonia. He continues to have fairly high oxygen needs. He has been appropriately treated empirically with azithromycin, cefepime and vancomycin. He was also just started on high-dose IV steroids. His PCR is negative for influenza, although his symptoms certainly sound like a viral pneumonia or influenza and this test could potentially be negative. At this point, it would be a bit late to start Tamiflu, although given that he has been on steroids and he is immunosuppressed, there could still be some benefit. 2. Recent pancreatitis. 3. History of smoking. The patient has no diagnosed history of COPD and does not have wheezing, but certainly have an obstructive component to his dyspnea and hypoxemia. 4. Diabetes. The patient's blood sugars are significantly elevated, likely due to steroids. RECOMMENDATIONS: 1. Agree with checking a viral respiratory panel PCR. 2. Continue empiric antibiotics. 3. Hold Tamiflu for now. 4. Continue supplemental oxygen as well as bronchodilators. 5. I will reduce the steroid dose, as he has already had a day of high-dose steroids and he has had marked increase in his blood sugars. 6. Continue to follow in the ICU for now. /[id number]/MODL MTDD
[2017-02-21] MEDS: predniSONE 20 MG TAB PO SCH (17:37)
[2017-02-21] MEDS: IBUPROFEN 200 MG TAB PO PRN (18:36)
[2017-02-21 18:49] LABS: POTASSIUM 3.4 mEq/L (3.5-5.2)
[2017-02-21] MEDS: OLANZapine 5 MG TAB PO SCH (20:12)
[2017-02-21 22:45] LABS: GLUCOSE 336 mg/dL (70-100)
[2017-02-22] MEDS: POTASSIUM Cl (KCl) 100 ML IV SCH ×3 (00:16→10:56)
[2017-02-22] MEDS: IPRATROPIUM/ALBUTEROL 3 ML DEYVIAL IH SCH ×4 (04:38→23:03)
[2017-02-22] MEDS: guaiFENesin/CODEINE PHOS 10 ML UDCUP PO PRN ×3 (04:56→21:44)
[2017-02-22] MEDS: BENZONATATE 100 MG CAP PO PRN ×2 (04:56→21:44)
[2017-02-22] MEDS: IBUPROFEN 200 MG TAB PO PRN ×2 (04:56→15:01)
[2017-02-22] MEDS: CEFEPIME HCL 2 GM in D5W 100 ML IV SCH ×3 (04:57→21:32)
[2017-02-22 05:23] LABS: ADD DIFF? YES; ADD MORPH? NO; ADD SCAN? NO; ATYPICAL LYMPHOCYTE FLAG 40 (0-99); FRAGMENT RBC FLAG 0 (0-99); HEMATOCRIT 42.4 % (40.0-51.0); LEFT SHIFT FLG 20 (0-99); LIPEMIA HEMOLYSIS FLAG 90 (0-99); MEAN CELL HEMOGLOBIN 35.1 pg (27.9-34.1); MEAN CELL HEMOGLOBIN CONCENTR. 35.4 g/dL (32.4-36.7); MEAN CELL VOLUME 99.3 fL (81.5-99.8); PLATELET CLUMPS FLAG 0 (0-99); PLATELET COUNT 216 10^3/uL (150-400); RED BLOOD CELL COUNT 4.27 10^6/uL (4.40-6.38); RED CELL DISTRIBUTION WIDTH 12.1 % (11.5-15.2)
[2017-02-22 05:37] LABS: POTASSIUM 3.8 mEq/L (3.5-5.2)
[2017-02-22 05:38] LABS: ANION GAP 8 mEq/L (8-16); CALCIUM 8.7 mg/dL (8.5-10.4); CARBON DIOXIDE 21 mEq/l (22-31); CHLORIDE 107 mEq/L (97-110); CREATININE 0.6 mg/dL (0.7-1.3); GLOMERULAR FILTRATION RATE > 60; GLUCOSE 181 mg/dL (70-100); MAGNESIUM 2.5 mg/dL (1.6-2.3); SODIUM 136 mEq/L (134-144)
[2017-02-22 05:56] LABS: PLATELET ESTIMATE ADEQUATE (ADEQ)
[2017-02-22] MEDS: VANCOMYCIN 1.5 GM in D5W 250 ML IV SCH (06:26)
[2017-02-22] MEDS: HYOSCYAMINE SULFATE 0.375 MG TAB.SR PO SCH ×2 (08:06→21:37)
[2017-02-22] MEDS: ARIPiprazole 2 MG TAB PO SCH (08:06)
[2017-02-22] MEDS: ATORVASTATIN CALCIUM 20 MG TAB PO SCH (08:07)
[2017-02-22] MEDS: FOLIC ACID 1 MG TAB PO SCH (08:07)
[2017-02-22] MEDS: predniSONE 20 MG TAB PO SCH ×2 (08:07→18:19)
[2017-02-22] MEDS: ASCORBIC ACID 500 MG TAB PO SCH (08:07)
[2017-02-22] MEDS: FLUoxetine 20 MG CAP PO SCH (08:08)
[2017-02-22] MEDS: VITAMIN B COMPLEX 1 EA CAP/TAB PO SCH (08:08)
[2017-02-22] MEDS: guaiFENesin 600 MG TAB.ER PO SCH ×2 (08:08→21:22)
[2017-02-22] MEDS: ENOXAPARIN 40 MG/0.4 ML SYR SC SCH (08:09)
[2017-02-22] MEDS: oxyCODONE IR 5 MG TAB PO SCH ×3 (08:09→21:22)
[2017-02-22] MEDS: INSULIN GLARGINE 100 UNITS/ML SYRINGE SC SCH ×2 (08:09→21:32)
[2017-02-22] MEDS: INSULIN LISPRO 100 UNIT/ML SC SCH ×3 (08:09→18:18)
[2017-02-22] MEDS: AZITHROMYCIN IV 500 MG in D5W 250 ML IV SCH (08:10)
[2017-02-22] MEDS ORDERED: NON-FORMULARY NEW DRUG (Canagliflozin [Invokana] 300 MG) PO SCH (09:30)
[2017-02-22] MEDS: Canagliflozin [Invokana] 300 MG PO SCH (10:21)
[2017-02-22] MEDS ORDERED: NON-FORMULARY NEW DRUG (Exenatide Microspheres [Bydureon Pen] 2 MG) SQ SCH (10:42)
[2017-02-22] MEDS: EXENATIDE MICROSPHERES SQ SCH (11:23)
[2017-02-22] MEDS: POTASSIUM CL 20 MEQ/15 ML UDCUP PO PRN ×2 (11:24→21:30)
--- NOTE | 2017-02-22 13:06 | HOSPPROG ---
Hospitalist Progress Note Assessment/Plan: # acute hypoxic resp failure - stable overnight, still very high O2 requirements ; very slow improvement # COPD exacerbation - cont abx, steroids, BDs, mucinex # HCAP - cont stop vanc, cont cefepime/azith - check viral PCR # etOH use - has significancy reduced recently; no e/o withdrawal currently # recent etOH pancreatitis # DM2 - cont glargine (increase dose), follow on steroids - restarted home meds (Exanatide/invokana) today # chronic pain on continuous narcotics ## high risk Subjective: feels better overall Objective: Vital Signs Temp Pulse Resp BP Pulse Ox 37.0 C 85 24 H 136/74 H 93 02/22/17 07:21 02/22/17 11:27 02/22/17 11:27 02/22/17 11:27 02/22/17 11:27 Microbiology 02/20/17 00:41 - Final Sputum, Expectorated Sputum Culture - Final Laboratory Results 02/22/17 05:05 02/22/17 05:05 02/21/17 02/22/17 02/23/17 05:59 05:59 05:59 Intake Total 2537 3394 400 Output Total 2024 2475 300 Balance 512 919 100 - Physical Exam Constitutional: uncomfortable Cardiovascular: regular rate and rhythym, no murmur, rub, or gallop Respiratory: no rales or rhonchi, reduced air movement, expiratory wheeze (mild with coughing), respiratory distress (mod) Gastrointestinal: normoactive bowel sounds, soft, non-tender abdomen, no palpable masses ICD10 Worksheet Patient Problems: Problems Problem Status Onset Diabetes mellitus type 2 Active Hyperlipidemia Active Essential hypertension Active Alcohol dependence Active Primary localized osteoarthritis of left knee Acute Pancreatitis Acute Abdominal pain Acute Hypokalemia Acute Hypoxemia Acute Pneumonia Acute
--- NOTE | 2017-02-22 13:22 | PDINTPN ---
Super[facility] [employer] Progress Note Assessment/Plan: Assessment: Pneumonia: Patchy alvoeolar infiltrates most c/w viral/atypical pneumonia. Worse on CXR compared to several days ago and oxygen needs unchanged, but symptoms improved. Hx Tobacco abuse: He may have a component of COPD, but has not been diagnosed. DM: BSs high, 180-350, likely due to steroids. Plan: Continue Cefipime, Azithromycin. Continue steroids at current reduced dose for now. May taper further if BSs still hard to manage and no signs of bronchospasm. Agree with respiratory viral panel, although this is unlikely to significantly guide changer. 02/22/17 13:25 Subjective: Cough and body aches better. Dyspnea a bit better. Objective: Vital Signs Temp Pulse Resp BP Pulse Ox 37.0 C 85 24 H 136/74 H 93 02/22/17 07:21 02/22/17 11:27 02/22/17 11:27 02/22/17 11:27 02/22/17 11:27 Microbiology 02/20/17 00:41 - Final Sputum, Expectorated Sputum Culture - Final Laboratory Results 02/22/17 05:05 02/22/17 05:05 02/21/17 02/22/17 02/23/17 05:59 05:59 05:59 Intake Total 2537 3394 400 Output Total 2024 2475 300 Balance 512 919 100 CXR: Increased bilateral alveolar infiltrates compared to 02/19. Images reviewed. Physical Exam - Physical Exam General Appearance: alert, no apparent distress EENT: normal ENT inspection Neck: normal inspection Respiratory: crackles Cardiac/Chest: regular rate, rhythm, edema Abdomen: normal bowel sounds, non-tender, soft Skin: normal color, warm/dry Extremities: normal inspection Neuro/Psych: alert, normal mood/affect, oriented x 3 ICD10 Worksheet Patient Problems: Problems Problem Status Onset Hypokalemia Acute Hypoxemia Acute Pneumonia Acute Alcohol dependence Active Diabetes mellitus type 2 Active Essential hypertension Active Hyperlipidemia Active Abdominal pain Acute Pancreatitis Acute Primary localized osteoarthritis of left knee Acute
[2017-02-22] MEDS: FUROSEMIDE 20 MG/2 ML VIAL IVP SCH (15:00)
[2017-02-22 19:05] LABS: POTASSIUM 3.7 mEq/L (3.5-5.2)
[2017-02-22] MEDS ORDERED: POTASSIUM CL 10 MEQ TAB PO ONE (21:15)
[2017-02-22] MEDS: OLANZapine 5 MG TAB PO SCH (21:37)
[2017-02-23 04:32] LABS: ADD DIFF? YES; ADD MORPH? NO; ADD SCAN? NO; ATYPICAL LYMPHOCYTE FLAG 30 (0-99); FRAGMENT RBC FLAG 0 (0-99); HEMATOCRIT 41.3 % (40.0-51.0); HEMOGLOBIN 14.3 g/dL (13.7-17.5); LEFT SHIFT FLG 20 (0-99); LIPEMIA HEMOLYSIS FLAG 90 (0-99); MEAN CELL HEMOGLOBIN 34.6 pg (27.9-34.1); MEAN CELL HEMOGLOBIN CONCENTR. 34.6 g/dL (32.4-36.7); PLATELET CLUMPS FLAG 0 (0-99); PLATELET COUNT 227 10^3/uL (150-400); RED BLOOD CELL COUNT 4.13 10^6/uL (4.40-6.38); RED CELL DISTRIBUTION WIDTH 11.9 % (11.5-15.2)
[2017-02-23 04:46] LABS: ANION GAP 7 mEq/L (8-16); CALCIUM 8.6 mg/dL (8.5-10.4); CARBON DIOXIDE 22 mEq/l (22-31); CHLORIDE 106 mEq/L (97-110); CREATININE 0.6 mg/dL (0.7-1.3); GLOMERULAR FILTRATION RATE > 60; GLUCOSE 213 mg/dL (70-100); POTASSIUM 4.1 mEq/L (3.5-5.2); SODIUM 135 mEq/L (134-144)
[2017-02-23 05:10] LABS: PLATELET ESTIMATE ADEQUATE (ADEQ)
[2017-02-23] MEDS: CEFEPIME HCL 2 GM in D5W 100 ML IV SCH ×3 (05:40→21:31)
[2017-02-23] MEDS: IBUPROFEN 200 MG TAB PO PRN ×2 (05:47→19:55)
[2017-02-23] MEDS: IPRATROPIUM/ALBUTEROL 3 ML DEYVIAL IH SCH ×4 (05:54→22:57)
[2017-02-23] MEDS: Canagliflozin [Invokana] 300 MG PO SCH (06:45)
[2017-02-23] MEDS: FUROSEMIDE 20 MG/2 ML VIAL IVP SCH ×2 (08:43→15:11)
[2017-02-23] MEDS: ARIPiprazole 2 MG TAB PO SCH (08:43)
[2017-02-23] MEDS: FOLIC ACID 1 MG TAB PO SCH (08:44)
[2017-02-23] MEDS: HYOSCYAMINE SULFATE 0.375 MG TAB.SR PO SCH ×2 (08:44→21:35)
[2017-02-23] MEDS: guaiFENesin 600 MG TAB.ER PO SCH ×2 (08:44→21:34)
[2017-02-23] MEDS: oxyCODONE IR 5 MG TAB PO SCH ×3 (08:45→21:36)
[2017-02-23] MEDS: AZITHROMYCIN 250 MG TAB PO SCH (08:45)
[2017-02-23] MEDS: ENOXAPARIN 40 MG/0.4 ML SYR SC SCH (08:45)
[2017-02-23] MEDS: predniSONE 20 MG TAB PO SCH (08:46)
[2017-02-23] MEDS: ASCORBIC ACID 500 MG TAB PO SCH (08:46)
[2017-02-23] MEDS: ATORVASTATIN CALCIUM 20 MG TAB PO SCH (08:46)
[2017-02-23] MEDS: FLUoxetine 20 MG CAP PO SCH (08:47)
[2017-02-23] MEDS: VITAMIN B COMPLEX 1 EA CAP/TAB PO SCH (08:47)
[2017-02-23] MEDS: INSULIN GLARGINE 100 UNITS/ML SYRINGE SC SCH ×2 (08:47→21:37)
[2017-02-23] MEDS: INSULIN LISPRO 100 UNIT/ML SC SCH ×3 (08:47→18:17)
[2017-02-23] MEDS: guaiFENesin/CODEINE PHOS 10 ML UDCUP PO PRN ×2 (09:00→16:24)
[2017-02-23] MEDS: BENZONATATE 100 MG CAP PO PRN (09:00)
--- NOTE | 2017-02-23 14:00 | HOSPPROG ---
Hospitalist Progress Note Assessment/Plan: # acute hypoxic resp failure - stable overnight, still very high O2 requirements ; very slow improvement # COPD exacerbation - cont abx, steroids (decrease dose), BDs, mucinex # HCAP - cont stop vanc, cont cefepime/azith - check viral PCR - still not sent unfortunately # etOH use - has significancy reduced recently; no e/o withdrawal currently # recent etOH pancreatitis # DM2 - cont glargine (increase dose), follow on steroids - restarted home meds (Exanatide/invokana) today # chronic pain on continuous narcotics ## mod risk Subjective: breathing feels slightly improved Objective: Vital Signs Temp Pulse Resp BP Pulse Ox 36.6 C 94 20 150/85 H 92 02/23/17 11:25 02/23/17 11:25 02/23/17 11:25 02/23/17 11:25 02/23/17 11:25 Microbiology 02/20/17 00:41 - Final Sputum, Expectorated Sputum Culture - Final Laboratory Results 02/23/17 03:45 02/23/17 03:45 02/22/17 02/23/17 02/24/17 05:59 05:59 05:59 Intake Total 3394 1750 400 Output Total 2475 3400 400 Balance 919 -1650 0 - Physical Exam Constitutional: no apparent distress, appears nourished Cardiovascular: regular rate and rhythym, no murmur, rub, or gallop Respiratory: no rales or rhonchi, clear to auscultation, respiratory distress ( mild) Gastrointestinal: normoactive bowel sounds, soft, non-tender abdomen, no palpable masses ICD10 Worksheet Patient Problems: Problems Problem Status Onset Diabetes mellitus type 2 Active Hyperlipidemia Active Essential hypertension Active Alcohol dependence Active Primary localized osteoarthritis of left knee Acute Pancreatitis Acute Abdominal pain Acute Hypokalemia Acute Hypoxemia Acute Pneumonia Acute
[2017-02-23 18:29] LABS: POTASSIUM 4.1 mEq/L (3.5-5.2)
[2017-02-23] MEDS: OLANZapine 5 MG TAB PO SCH (21:36)
[2017-02-23] MEDS: ZOLPIDEM TARTRATE 5 MG TAB PO PRN (23:07)
[2017-02-24] MEDS: guaiFENesin/CODEINE PHOS 10 ML UDCUP PO PRN ×3 (04:10→22:16)
[2017-02-24 04:42] LABS: POTASSIUM 3.5 mEq/L (3.5-5.2)
[2017-02-24] MEDS: IPRATROPIUM/ALBUTEROL 3 ML DEYVIAL IH SCH ×4 (05:15→22:23)
[2017-02-24] MEDS: CEFEPIME HCL 2 GM in D5W 100 ML IV SCH ×3 (06:09→21:52)
[2017-02-24] MEDS: Canagliflozin [Invokana] 300 MG PO SCH (06:44)
[2017-02-24] MEDS ORDERED: POTASSIUM CL 10 MEQ TAB PO ONE (08:01)
[2017-02-24] MEDS: guaiFENesin 600 MG TAB.ER PO SCH ×2 (08:05→21:54)
[2017-02-24] MEDS: oxyCODONE IR 5 MG TAB PO SCH ×3 (08:05→21:55)
[2017-02-24] MEDS: predniSONE 20 MG TAB PO SCH (08:06)
[2017-02-24] MEDS: FUROSEMIDE 20 MG/2 ML VIAL IVP SCH ×2 (08:07→15:57)
[2017-02-24] MEDS: ENOXAPARIN 40 MG/0.4 ML SYR SC SCH (08:07)
[2017-02-24] MEDS: BENZONATATE 100 MG CAP PO PRN ×2 (08:12→15:58)
[2017-02-24] MEDS: INSULIN GLARGINE 100 UNITS/ML SYRINGE SC SCH ×2 (08:16→21:52)
[2017-02-24] MEDS: INSULIN LISPRO 100 UNIT/ML SC SCH ×3 (08:38→18:09)
[2017-02-24] MEDS: ASCORBIC ACID 500 MG TAB PO SCH (10:42)
[2017-02-24] MEDS: FLUoxetine 20 MG CAP PO SCH (10:42)
[2017-02-24] MEDS: HYOSCYAMINE SULFATE 0.375 MG TAB.SR PO SCH ×2 (10:43→21:53)
[2017-02-24] MEDS: AZITHROMYCIN 250 MG TAB PO SCH (10:43)
[2017-02-24] MEDS: ARIPiprazole 2 MG TAB PO SCH (10:43)
[2017-02-24] MEDS: ATORVASTATIN CALCIUM 20 MG TAB PO SCH (10:43)
--- NOTE | 2017-02-24 13:33 | HOSPPROG ---
Hospitalist Progress Note Assessment/Plan: # acute hypoxic resp failure - O2 demands improving; cont on abx and lasix IV # COPD exacerbation - cont abx, steroids, BDs, mucinex, IS, flutter valve # HCAP - cont cefepime D#5, azith D#4 # etOH use - has significancy reduced recently; no e/o withdrawal currently # recent etOH pancreatitis # DM2 - cont glargine (back to home dose), follow on steroids - restarted home meds (Exanatide/invokana) today # chronic pain on continuous narcotics # dispo - likely later this week ## mod risk Subjective: feels better, O2 lower Objective: Vital Signs Temp Pulse Resp BP Pulse Ox 36.9 C 85 20 114/77 94 02/24/17 11:25 02/24/17 11:25 02/24/17 11:25 02/24/17 11:25 02/24/17 11:25 Laboratory Results 02/23/17 03:45 02/24/17 03:37 02/23/17 02/24/17 02/25/17 05:59 05:59 05:59 Intake Total 1750 2510 965 Output Total 3400 2250 1700 Balance -1650 260 -735 - Physical Exam Constitutional: no apparent distress, appears nourished Cardiovascular: regular rate and rhythym, no murmur, rub, or gallop Respiratory: no respiratory distress, no rales or rhonchi, reduced air movement , No inspiratory crackles Gastrointestinal: normoactive bowel sounds, soft, non-tender abdomen, no palpable masses ICD10 Worksheet Patient Problems: Problems Problem Status Onset Diabetes mellitus type 2 Active Hyperlipidemia Active Essential hypertension Active Alcohol dependence Active Primary localized osteoarthritis of left knee Acute Pancreatitis Acute Abdominal pain Acute Hypokalemia Acute Hypoxemia Acute Pneumonia Acute
[2017-02-24] MEDS: IBUPROFEN 200 MG TAB PO PRN (15:56)
[2017-02-24] MEDS: OLANZapine 5 MG TAB PO SCH (21:54)
[2017-02-24] MEDS: ZOLPIDEM TARTRATE 5 MG TAB PO PRN (23:17)
[2017-02-25] MEDS: CEFEPIME HCL 2 GM in D5W 100 ML IV SCH ×3 (04:57→22:32)
[2017-02-25] MEDS: guaiFENesin/CODEINE PHOS 10 ML UDCUP PO PRN ×3 (04:57→22:35)
[2017-02-25] MEDS: IPRATROPIUM/ALBUTEROL 3 ML DEYVIAL IH SCH ×4 (05:10→22:12)
[2017-02-25 05:59] LABS: POTASSIUM 3.4 mEq/L (3.5-5.2)
[2017-02-25] MEDS: Canagliflozin [Invokana] 300 MG PO SCH (06:23)
[2017-02-25] MEDS: IBUPROFEN 200 MG TAB PO PRN (06:27)
[2017-02-25] MEDS: guaiFENesin 600 MG TAB.ER PO SCH ×2 (08:28→20:25)
[2017-02-25] MEDS: ATORVASTATIN CALCIUM 20 MG TAB PO SCH (08:29)
[2017-02-25] MEDS: oxyCODONE IR 5 MG TAB PO SCH ×3 (08:29→20:25)
[2017-02-25] MEDS: ASCORBIC ACID 500 MG TAB PO SCH (08:29)
[2017-02-25] MEDS: predniSONE 20 MG TAB PO SCH (08:29)
[2017-02-25] MEDS: ENOXAPARIN 40 MG/0.4 ML SYR SC SCH (08:29)
[2017-02-25] MEDS: ARIPiprazole 2 MG TAB PO SCH (08:29)
[2017-02-25] MEDS: HYOSCYAMINE SULFATE 0.375 MG TAB.SR PO SCH ×2 (08:30→20:26)
[2017-02-25] MEDS: FLUoxetine 20 MG CAP PO SCH (08:30)
[2017-02-25] MEDS: AZITHROMYCIN 250 MG TAB PO SCH (08:30)
[2017-02-25] MEDS: INSULIN LISPRO 100 UNIT/ML SC SCH ×3 (08:31→20:24)
[2017-02-25] MEDS: FUROSEMIDE 20 MG/2 ML VIAL IVP SCH (08:31)
[2017-02-25] MEDS: POTASSIUM CL 20 MEQ/15 ML UDCUP PO PRN (08:56)
[2017-02-25 09:49] LABS: ANION GAP 9 mEq/L (8-16); CARBON DIOXIDE 27 mEq/l (22-31); CHLORIDE 100 mEq/L (97-110); CREATININE 0.6 mg/dL (0.7-1.3); GLOMERULAR FILTRATION RATE > 60; GLUCOSE 203 mg/dL (70-100); POTASSIUM 4.4 mEq/L (3.5-5.2); SODIUM 136 mEq/L (134-144)
[2017-02-25] MEDS: FUROSEMIDE 20 MG TAB PO SCH (10:53)
--- NOTE | 2017-02-25 11:03 | HOSPPROG ---
Hospitalist Progress Note Assessment/Plan: * Acute respiratory failure - slow improvement * COPD exacerbation -steroids, nebs, abx * Pneumonia -repeat CXR shows rapid resolution of infiltrates - ? pulmonary edema -influenza negative -continue cefepime, azithro - covering for possible HAP * DM II -home meds * Etoh abuse with recent Etoh pancreatitis * Tobacco dependence * Chronic pain with continuous narcotic dependency Subjective: Feels very weak and fatigues - doesn't think ready for home. Very SOB with exertion, had to go up on O2 with ambulation. Productive severe cough continues, coughed up blood yesterday. Objective: Vital Signs Temp Pulse Resp BP Pulse Ox 37.2 C 96 20 123/69 H 95 02/25/17 07:21 02/25/17 10:29 02/25/17 10:29 02/25/17 07:21 02/25/17 10:29 Laboratory Results 02/23/17 03:45 02/25/17 09:15 02/24/17 02/25/17 02/26/17 05:59 05:59 05:59 Intake Total 2510 2492 200 Output Total 2250 4766 425 Balance 318 -158 -688 CXR viewed, my personal interpretation is - resolution of bilateral pulmonary infiltrates ECHO - normal EF >70 % with pulmonary HTN - Physical Exam Constitutional: no apparent distress, appears nourished, not in pain Cardiovascular: regular rate and rhythym, no murmur, rub, or gallop Respiratory: no respiratory distress, no rales or rhonchi, clear to auscultation Gastrointestinal: normoactive bowel sounds, soft, non-tender abdomen, no palpable masses Skin: no rashes or abrasions, no fluctuance, no induration Neurologic: AAOx3, sensation intact bilaterally Psychiatric: interacting appropriately, not anxious, not encephalopathic, thought process linear ICD10 Worksheet Patient Problems: Problems Problem Status Onset Hypokalemia Acute Hypoxemia Acute Pneumonia Acute Alcohol dependence Active Diabetes mellitus type 2 Active Essential hypertension Active Hyperlipidemia Active Abdominal pain Acute Pancreatitis Acute Primary localized osteoarthritis of left knee Acute
[2017-02-25 20:11] LABS: POTASSIUM 4.5 mEq/L (3.5-5.2)
[2017-02-25] MEDS: OLANZapine 5 MG TAB PO SCH (20:25)
[2017-02-25] MEDS: INSULIN GLARGINE 100 UNITS/ML SYRINGE SC SCH (22:33)
[2017-02-25] MEDS: ZOLPIDEM TARTRATE 5 MG TAB PO PRN (23:22)
[2017-02-26 04:38] LABS: ADD DIFF? YES; ADD MORPH? NO; ADD SCAN? NO; ATYPICAL LYMPHOCYTE FLAG 10 (0-99); FRAGMENT RBC FLAG 0 (0-99); HEMOGLOBIN 14.6 g/dL (13.7-17.5); LEFT SHIFT FLG 30 (0-99); LIPEMIA HEMOLYSIS FLAG 90 (0-99); MEAN CELL HEMOGLOBIN 34.8 pg (27.9-34.1); MEAN CELL HEMOGLOBIN CONCENTR. 34.8 g/dL (32.4-36.7); MEAN PLATELET VOLUME 9.9 fL (8.7-11.7); PLATELET CLUMPS FLAG 10 (0-99); PLATELET COUNT 279 10^3/uL (150-400)
[2017-02-26 04:54] LABS: ANION GAP 5 mEq/L (8-16); CALCIUM 8.8 mg/dL (8.5-10.4); CARBON DIOXIDE 27 mEq/l (22-31); CHLORIDE 102 mEq/L (97-110); CREATININE 0.6 mg/dL (0.7-1.3); GLOMERULAR FILTRATION RATE > 60; GLUCOSE 109 mg/dL (70-100); POTASSIUM 3.9 mEq/L (3.5-5.2); SODIUM 134 mEq/L (134-144)
[2017-02-26] MEDS: IPRATROPIUM/ALBUTEROL 3 ML DEYVIAL IH SCH ×2 (05:55→11:09)
[2017-02-26 06:05] LABS: LARGE PLATELETS PRESENT; PLATELET ESTIMATE ADEQUATE (ADEQ)
[2017-02-26] MEDS: ACETAMINOPHEN 325 MG TAB PO PRN (06:12)
[2017-02-26] MEDS: CEFEPIME HCL 2 GM in D5W 100 ML IV SCH ×2 (06:13→14:50)
[2017-02-26] MEDS: oxyCODONE IR 5 MG TAB PO SCH (06:43)
[2017-02-26] MEDS: Canagliflozin [Invokana] 300 MG PO SCH (07:44)
[2017-02-26] MEDS: INSULIN LISPRO 100 UNIT/ML SC SCH ×2 (07:48→14:51)
[2017-02-26] MEDS: ENOXAPARIN 40 MG/0.4 ML SYR SC SCH (08:00)
[2017-02-26] MEDS: FUROSEMIDE 20 MG TAB PO SCH (08:00)
[2017-02-26] MEDS: predniSONE 20 MG TAB PO SCH (08:00)
[2017-02-26] MEDS: AZITHROMYCIN 250 MG TAB PO SCH (08:01)
[2017-02-26] MEDS: guaiFENesin 600 MG TAB.ER PO SCH (08:01)
[2017-02-26] MEDS: HYOSCYAMINE SULFATE 0.375 MG TAB.SR PO SCH (08:01)
[2017-02-26] MEDS: ASCORBIC ACID 500 MG TAB PO SCH (08:01)
[2017-02-26] MEDS: ATORVASTATIN CALCIUM 20 MG TAB PO SCH (08:01)
[2017-02-26] MEDS: ARIPiprazole 2 MG TAB PO SCH (08:01)
[2017-02-26] MEDS: FLUoxetine 20 MG CAP PO SCH (08:02)
[2017-02-26] MEDS: guaiFENesin/CODEINE PHOS 10 ML UDCUP PO PRN (08:36)
[2017-02-26 11:51] VITALS: BP 121/78; PULSE 61; RESP 19; TEMP 98.4; O2SAT 93
[2017-02-26] MEDS: EXENATIDE MICROSPHERES SQ SCH (12:18)
--- NOTE | 2017-02-26 20:22 | GDS ---
[f rep st] DISCHARGE SUMMARY DISCHARGE DIAGNOSES: 1. Acute respiratory failure. 2. Chronic obstructive pulmonary disease exacerbation. 3. Pneumonia. 4. Diabetes type 2. 5. Recent alcohol pancreatitis. 6. Tobacco dependence. 7. Chronic pain with continuous narcotic dependency. HISTORY: The patient is a 56-year-old male who presented with upper respiratory symptoms, and a vivek st x-ray which blossomed bilateral pulmonary infiltrates most consistent with atypical pneumonia. H e was treated with antibiotics, steroids, and nebulizers, and slowly improved. He is still requirin g oxygen at the time of hospital discharge. He was an active smoker until the time of presentation, but is motivated to quit. His echocardiogram does show some right-sided heart failure and pulmonar y hypertension. So, there may be an element of chronic lung disease. He is overweight with a BMI o f 32, and that may also be contributing. He is being referred to Pulmonary Medicine as an outpatien t for full PFTs. He will continue on oxygen continuously 24/ until documentation of room-air satur ations greater than 90%. DISCHARGE MEDICATIONS: Please see computer record for full detailed list. NEW MEDICATIONS: 1. Combivent 1 puff 4 times a day. 2. Azithromycin 500 mg p.o. daily for 5 more days. He did complete a full 6-7 day course of cefepi me while in the hospital. 3. Prednisone 40 mg p.o. daily for 3 more days. DISCHARGE INSTRUCTIONS: Outpatient pulmonary function test to better diagnosis underlying chronic l lucas disease and etiology of pulmonary hypertension. Referral was given to Dr. Javier Ruano. Greater 30 minutes of time was spent arranging this discharge. The patient was seen and examined by me on the day of discharge. /[id number]/MODL
== END 2017-02-26 15:04 | disposition home or self-care (01) | DRG 193 ==
LOC: F3E 18:22 → F2N 02-20 12:00 → F2W 02-22 17:06
PROVIDERS: ADMIT Hospitalist; ATTEND Hospitalist
DX: J18.8 Other pneumonia, unspecified organism (principal); J96.01 Acute respiratory failure with hypoxia; J44.1 Chronic obstructive pulmonary disease with (acute) exacerbation; F11.20 Opioid dependence, uncomplicated; E11.9 Type 2 diabetes mellitus without complications; G89.29 Other chronic pain; F17.200 Nicotine dependence, unspecified, uncomplicated; E66.3 Overweight; I27.2 Other secondary pulmonary hypertension; I50.9 Heart failure, unspecified; I11.0 Hypertensive heart disease with heart failure; E78.5 Hyperlipidemia, unspecified; E87.6 Hypokalemia; Z79.4 Long term (current) use of insulin; Z68.32 Body mass index [BMI] 32.0-32.9, adult
CPT/HCPCS: 82947-QW; 87449-90; 97161-GP; J0456; J0692; J1650; J1815; J3370; Q9967

== ENCOUNTER → 2017-03-20 | Outpatient (CLI) | payer OTHER | LOC: BMCIMAGING 10:56 | PROVIDERS: ATTEND Internal Medicine | DX: Z87.01 Personal history of pneumonia (recurrent) (principal) ==

== ENCOUNTER → 2017-05-19 | Outpatient (CLI) | payer OTHER | LOC: FIMAGING 08:58 | PROVIDERS: ATTEND Orthopaedic Surgery | DX: Z01.818 Encounter for other preprocedural examination (principal); M17.11 Unilateral primary osteoarthritis, right knee ==

== ENCOUNTER 2017-06-10 09:13 | Inpatient (IN) | payer OTHER ==
[~2017-06-10 09:13] MED LIST changes: -ACETAMINOPHEN 325 MG TAB PO ONE; -CEFAZOLIN 2 GM/DEXTR 100 ML IV ONE; -CHLORHEXIDINE GLUC HIBICLENS 118 ML BTL TP ONE; -DEXAMETHASONE 4 MG/ML VIAL IVP ONE; -FAMOTIDINE 20 MG TAB PO ONE; -ROPI/epiNEPH/KETOROLAC JOINT COCKTAIL IU ONE; +ROPIVACAINE 0.2% 80 MG, EPINEPHrine 0.2 MG, KETOROLAC TROMETHAMINE 30 MG in BAG 0 ML IU ONE; -SKIN ADHESIVE (DERMABOND) 1 EACH TP ONE; -VANCOMYCIN 1 GM VIAL IV ONE; +VANCOMYCIN 1 GM VIAL ONE
[2017-06-10] MEDS ORDERED: ceFAZolin 2 GM/DEXTROSE 100 ML IV ONE (09:46)
[2017-06-10] MEDS ORDERED: ACETAMINOPHEN 325 MG TAB PO ONE (09:46)
[2017-06-10] MEDS ORDERED: FAMOTIDINE 20 MG TAB PO ONE (09:46)
[2017-06-10] MEDS ORDERED: DEXAMETHASONE 4 MG/ML VIAL IVP ONE (09:46)
[2017-06-10] MEDS ORDERED: LIDOCAINE 1% 2 ML INJ ID PRN (09:47)
[2017-06-10] MEDS ORDERED: LR 1,000 ML IV ONE (09:47)
[2017-06-10] MEDS ORDERED: MIDAZOLAM 2 MG/2 ML VIAL ONE (10:42)
--- NOTE | 2017-06-10 10:46 | PDANEPAE ---
ANE History of Present Illness RIGHT KNEE OA ANE Past Medical History - Cardiovascular History Hx Hypertension: Yes Hx Arrhythmias: No Hx Chest Pain: No Hx Coronary Artery / Peripheral Vascular Disease: No Hx CHF / Valvular Disease: No Hx Palpitations: No - Pulmonary History Hx COPD: No Hx Asthma/Reactive Airway Disease: No Hx Recent Upper Respiratory Infection: No Hx Oxygen in Use at Home: No Hx Sleep Apnea: No Sleep Apnea Screening Result - Last Documented: Positive Pulmonary History Comment: 02/19/17 ADMITTED FOR RESPIRATORY FAILURE. PULMONARY INFILTRATES/PNEUMONIA - Neurologic History Hx Cerebrovascular Accident: No Hx Seizures: No Hx Dementia: No - Endocrine History Hx Diabetes: Yes Endocrine History Comment: IDDM - Renal History Hx Renal Disorders: No - Liver History Hx Hepatic Disorders: No Hepatic History Comment: HAD HEP C, NOT ANYMORE - Neurological & Psychiatric Hx Hx Neurological and Psychiatric Disorders: Yes Neurological / Psychiatric History Comment: DEPRESSION, - Cancer History Hx Cancer: No - Congenital Disorder History Hx Congenital Disorders: No - GI History Hx Gastrointestinal Disorders: No - Other Health History Other Health History: NONE - Chronic Pain History Chronic Pain: No - Surgical History Prior Surgeries: L SHOULDER ANE Review of Systems - Exercise capacity METS (RN): 4 METS ANE Patient History - Allergies Allergies/Adverse Reactions: No Known Allergies Allergy (Verified 02/14/17 15:50) - Home Medications Home Medications: ARIPiprazole [Abilify 2 mg (*)] 2 mg PO DAILY 11/05/16 [Last Taken 06/09/17 20: 00] Ascorbic Acid [Vitamin C 500 mg (*)] 500 mg PO DAILY 11/05/16 [Last Taken ] Atorvastatin Calcium [Lipitor 20 mg (*)] 20 mg PO DAILY18 11/05/16 [Last Taken 06/09/17 08:00] Exenatide Microspheres [Bydureon Pen] 2 mg SQ TH 11/05/16 [Last Taken 06/04/17 20:00] FLUoxetine [Prozac 20 MG (*)] 40 mg PO DAILY 11/05/16 [Last Taken 06/10/17 08:00 ] Folic Acid [Folic Acid 1 MG (*)] 1 mg PO DAILY 11/05/16 [Last Taken 05/20/17] Furosemide [Lasix 20 MG (*)] 20 mg PO DAILY 11/05/16 [Last Taken 06/09/17 08:00] Herbals/Supplements -Info Only 1 ea PO DAILY 11/05/16 [Last Taken 05/20/17] Hyoscyamine Sulfate [Hyomax-Sr 0.375 mg (*)] 0.375 mg PO BID 11/05/16 [Last Taken 06/09/17 08:00] Losartan/Hydrochlorothiazide [Hyzaar 100-12.5 Tablet] 1 each PO DAILY 11/05/16 [ Last Taken 06/09/17 08:00] OLANZapine [ZyPREXA 2.5 mg (*)] 5 mg PO HS 11/05/16 [Last Taken 06/09/17 20:00] Vitamin B Complex [B Complex] 1 each PO DAILY 11/05/16 [Last Taken 05/20/17] Insulin Detemir [Levemir] 40 unit SQ HS 02/14/17 [Last Taken 06/09/17 22:30] oxyCODONE IR [Oxycodone Ir (*)] 10 mg PO TID 02/14/17 [Last Taken 06/10/17 07:30 ] Canagliflozin [Invokana] 300 mg PO DAILY 02/22/17 [Last Taken 06/09/17 08:00] Diclofenac Sodium [Voltaren 75 MG (*)] 75 mg PO BIDMEAL 05/11/17 [Last Taken Unknown] Vitamin B Complex [B Complex] 1 each PO DAILY 05/11/17 [Last Taken 05/20/17] clonIDINE [Catapres (*)] 0.2 mg PO BID 05/11/17 [Last Taken Unknown] - NPO status NPO Since - Liquids (Date): 06/10/17 NPO Since - Liquids (Time): 07:30 NPO Since - Solids (Date): 06/09/17 NPO Since - Solids (Time): 23:00 - Anes Hx Anes Hx: no prior problems - Smoking Hx Smoking Status: Current every day smoker - Family Anes Hx Family Hx Anesthesia Complications: NONE ANE Labs/Vital Signs - Vital Signs Blood Pressure: 155/89 Heart Rate: 87 Respiratory Rate: 15 O2 Sat (%): 95 Height: 172.72 cm Weight: 95.254 kg ANE Physical Exam - Airway Neck exam: FROM Mallampati Score: Class 2 Mouth exam: normal dental/mouth exam - Pulmonary Pulmonary: no respiratory distress - Cardiovascular Cardiovascular: regular rate and rhythym - ASA Status ASA Status: III ANE Anesthesia Plan Anesthesia Plan: spinal Regional Anesthesia: adductor canal FNB
[2017-06-10] MEDS ORDERED: MIDAZOLAM 2 MG/2 ML VIAL IVP ONE (10:47)
--- NOTE | 2017-06-10 11:10 | PDHPUP ---
History & Physical Update H&P update statement: This history and physical update is based on an assessment of the patient which was completed after admission or registration (within 24 hours), but prior to the surgery/procedure. H&P update: H&P reviewed & patient examined, no change in patient's condition since H&P completed
[2017-06-10] MEDS ORDERED: PROPOFOL 200 MG/20 ML VIAL ONE ×3 (11:34)
[2017-06-10] MEDS ORDERED: NALOXONE HCL 0.4 MG/ML INJ IVP PRN (12:11)
[2017-06-10] MEDS ORDERED: HYDROmorphONE/DILAUDID 1 MG/ML SYR IVP PRN (12:11)
[2017-06-10] MEDS ORDERED: fentaNYL 100 MCG/2 ML INJ IVP PRN (12:11)
[2017-06-10] MEDS ORDERED: ONDANSETRON 4 MG/2 ML VIAL IVP PRN ×2 (12:11→12:31)
[2017-06-10] MEDS ORDERED: OXYCODONE/APAP 5/325 TAB PO PRN (12:11)
[2017-06-10] MEDS ORDERED: ACETAMINOPHEN 500 MG TAB PO PRN (12:11)
[2017-06-10] MEDS ORDERED: DIPHENOXYLATE/ATROPINE LOMOTIL 1 TAB PO PRN (12:31)
[2017-06-10] MEDS ORDERED: MAGNESIUM HYDROXIDE 30 ML UDCUP PO PRN (12:31)
[2017-06-10] MEDS ORDERED: POLYETHYLENE GLYCOL 3350 17 GM PKT PO PRN (12:31)
[2017-06-10] MEDS ORDERED: CYCLOBENZAPRINE 10 MG TAB PO PRN (12:31)
[2017-06-10] MEDS ORDERED: BISACODYL 10 MG SUPP PR PRN (12:31)
[2017-06-10] MEDS ORDERED: PROMETHAZINE HCL 25 MG SUPPR PR PRN (12:31)
[2017-06-10] MEDS ORDERED: PROMETHAZINE HCL 25 MG/ML INJ IVP PRN (12:31)
[2017-06-10] MEDS ORDERED: diphenhydrAMINE 25 MG CAP PO PRN (12:31)
[2017-06-10] MEDS ORDERED: PHARMACY PAIN CONSULT 1 EA MISC PRN (12:31)
[2017-06-10] MEDS ORDERED: ONDANSETRON DISINTEGRATING 4 MG TAB PO PRN (12:31)
[2017-06-10] MEDS ORDERED: LACTULOSE 20 GM/30 ML UDCUP PO PRN (12:31)
[2017-06-10] MEDS ORDERED: METOCLOPRAMIDE 10 MG/2 ML VIAL IVP PRN (12:31)
[2017-06-10] MEDS ORDERED: TEMAZEPAM 15 MG CAP PO PRN (12:31)
--- NOTE | 2017-06-10 12:31 | POSTOPPROG ---
Post Op Note Date of Operation: 06/10/17 Surgeon: Lola Yao Suspect Artist: lulu yao Anesthesiologist: dr. frank Anesthesia: Spinal, Other (Specify) (adductor canal block) Pre-op Diagnosis: right knee OA Post-op Diagnosis: same Indication: right knee pain due to OA that failed conservative measures Procedure: R TKA robot assisted Findings: severe knee OA Inf/Abcess present in the surg proc area at time of surgery?: No EBL: 50-100
--- NOTE | 2017-06-10 13:04 | POSTANESTH ---
Post Anesthetic Evaluation Cardiovascular Status: Normal, Stable Respiratory Status: Normal, Stable Level of Consciousness/Mental Status: Can Participate in Eval Pain Control: Adequate, Prn Tx Ordered Nausea/Vomiting Control: Adequate, Prn Tx Ordered Complications Possibly Related to Anesthesia: None Noted
[2017-06-10] MEDS ORDERED: ceFAZolin 2 GM/DEXTROSE 100 ML IV SCH (14:00)
[2017-06-10] MEDS: LR 1,000 ML IV SCH ×2 (14:15→21:26)
[2017-06-10 14:36] VITALS: RESP 16
[2017-06-10] MEDS: oxyCODONE IR 5 MG TAB PO PRN ×3 (16:09→23:29)
[2017-06-10] MEDS ORDERED: ATORVASTATIN CALCIUM 20 MG TAB PO SCH (18:00)
[2017-06-10] MEDS: ACETAMINOPHEN 325 MG TAB PO SCH ×2 (18:17→23:30)
[2017-06-10] MEDS: FAMOTIDINE 20 MG TAB PO SCH (19:45)
[2017-06-10] MEDS: SENNOSIDES/DOCUSATE SODIUM TAB PO SCH (19:45)
[2017-06-10] MEDS: ASPIRIN 325 MG TAB PO SCH (19:45)
[2017-06-10] MEDS ORDERED: INSULIN GLARGINE 100 UNITS/ML SYRINGE SC SCH (21:00)
[2017-06-10] MEDS ORDERED: NON-FORMULARY NEW DRUG (Insulin Detemir [Levemir] 40 UNIT) SQ SCH (21:00)
[2017-06-10] MEDS ORDERED: OLANZapine 2.5 MG TAB PO SCH (21:00)
[2017-06-10] MEDS: HYOSCYAMINE SULFATE 0.375 MG TAB.SR PO SCH (21:13)
[2017-06-10] MEDS: ceFAZolin 2 GM/DEXTROSE 100 ML IV SCH (21:14)
[2017-06-11] MEDS: ceFAZolin 2 GM/DEXTROSE 100 ML IV SCH (04:37)
[2017-06-11 04:39] VITALS: O2SAT 94
[2017-06-11] MEDS: ACETAMINOPHEN 325 MG TAB PO SCH (04:42)
[2017-06-11] MEDS: oxyCODONE IR 5 MG TAB PO PRN ×2 (04:42→08:04)
[2017-06-11 05:25] LABS: HEMATOCRIT 41.2 % (40.0-51.0); HEMOGLOBIN 14.9 g/dL (13.7-17.5)
[2017-06-11 07:29] VITALS: BP 133/82; PULSE 61; TEMP 97.8
[2017-06-11] MEDS: SENNOSIDES/DOCUSATE SODIUM TAB PO SCH (07:51)
[2017-06-11] MEDS: HYOSCYAMINE SULFATE 0.375 MG TAB.SR PO SCH (07:51)
[2017-06-11] MEDS: ASPIRIN 325 MG TAB PO SCH (07:51)
[2017-06-11] MEDS: FAMOTIDINE 20 MG TAB PO SCH (07:52)
[2017-06-11] MEDS: ARIPiprazole 2 MG TAB PO SCH ×2 (07:56→09:51)
[2017-06-11] MEDS ORDERED: LOSARTAN POTASSIUM 50 MG TAB PO SCH (09:00)
[2017-06-11] MEDS ORDERED: FUROSEMIDE 20 MG TAB PO SCH (09:00)
[2017-06-11] MEDS ORDERED: FLUoxetine 20 MG CAP PO SCH (09:00)
[2017-06-11] MEDS ORDERED: NON-FORMULARY NEW DRUG (Losartan/Hydrochlorothiazide [Hyzaar 100-12.5 Tablet] 1 EACH) PO SCH (09:00)
[2017-06-11] MEDS ORDERED: HYDROCHLOROTHIAZIDE 12.5 MG CAP PO SCH (09:00)
[2017-06-11] MEDS ORDERED: NON-FORMULARY NEW DRUG (Canagliflozin [Invokana] 300 MG) PO SCH (09:00)
--- NOTE | 2017-06-11 10:48 | SOAPPROG ---
SOAP Progress Note Assessment/Plan: Assessment: Patient is doing well POD 1 s/p R TKA Pain management: pain is well controlled on oral pain meds. VTE ppx: recommend aspirin daily for 3 weeks, cont BONNIE and SCDs Anemia: level is expected initially postop. Asymptomatic. Continue to monitor D/c planning: d/c to home today pending release from PT Plan: 06/11/17 10:46 Subjective: Antoine is doing well today, eager for d/c states some numbness on his right foot and difficulty dorsiflexing, able to walk yesterday, mild pain, denies SOB ,chest pain and N/V. Objective: Vital Signs Temp Pulse Resp BP Pulse Ox 36.6 C 61 16 133/82 H 94 06/11/17 07:28 06/11/17 07:28 06/11/17 07:28 06/11/17 07:28 06/11/17 07:28 Laboratory Results 06/11/17 05:08 06/10/17 06/11/17 06/12/17 05:59 05:59 05:59 Intake Total 5543 Output Total 1100 Balance 4443 RLE: incision dressing is clean and dry, NVI, +pf/df ICD10 Worksheet Patient Problems: Problems Problem Status Onset Primary localized osteoarthritis of right knee Acute Alcohol dependence Active Diabetes mellitus type 2 Active Essential hypertension Active Hyperlipidemia Active
--- NOTE | 2017-06-11 11:48 | GOP ---
[f rep st] OPERATIVE REPORT DATE OF OPERATION: 06/10/2017 SURGEON: Chon Apple MD HOME MANAGEMENT SUPERVISOR: ELLA Newman ANESTHESIA: Spinal. PREOPERATIVE DIAGNOSIS: Right knee osteoarthritis. POSTOPERATIVE DIAGNOSIS: Right knee osteoarthritis. PROCEDURE PERFORMED: Right total knee arthroplasty with computer navigation and robotic assist. FINDINGS: ESTIMATED BLOOD LOSS: 30 cc. INDICATIONS: This is a 56-year-old male with severe and progressive pain and deformity of the right knee unresponsive to conservative care. The risks and benefits of surgical intervention were explained in detail. DESCRIPTION OF PROCEDURE: The patient was brought to the operative room and placed on the table in the supine position. Spinal anesthesia was induced without difficulty. A pneumatic tourniquet was applied about the right proximal thigh, and the leg was prepped and draped in a sterile fashion. The leg dailey was applied. After exsanguination by elevation the tourniquet was inflated to mm of mercury. Incision was made anterior medial from the tibial tuberosity to a point cm proximal to the superior pole of the patella. Medial parapatellar arthrotomy was carried out from the superior pole of the patella and posteriorly in line with the fibers of the Type II VMO. The medial collateral ligament was elevated and the infrapatellar fat pad was resected. The patella was everted and the articular surface was excised. A 35 mm patellar button was placed. The distal femoral guide hole was drilled and the 6 degree alignment magui was placed. A mm distal femoral cut was made without difficulty. Attention was turned to the tibia and a standard mm cut based on the ___ ____ condyle was performed. The tibial articular surface was excised without difficulty. Attention was turned back to the femur and a size 5 femoral cutting block was positioned. Anterior, posterior, and chamfer cuts were made, followed by the intercondylar box cut. The knee was extended and the remnants of the medial and lateral meniscus were excised. The posterior capsule was injected with ropivacaine, epinephrine, and Toradol. A size 6 tibial tray was positioned. Trial reduction was then carried out. There was excellent range of motion, alignment, and stability using the 6 x 9 mm polyethylene. All trials were then removed. The joint was thoroughly irrigated and carefully dried. Two packages of cement and 2 grams of vancomycin were mixed in the vacuum mixer and placed on the fixation surfaces of all surfaces of the components. The components were implanted and all excess cement was thoroughly removed. The permanent 6 x 9 mm polyethylene was placed without difficulty. The tourniquet was deflated and all bleeders were coagulated. The wound was thoroughly irrigated and closed using interrupted sutures of 2-0 Vicryl for the joint capsule. The subcu was closed with 3-0 Vicryl and the skin with 4-0 Monocryl. Dermabond and Steri-Strips were applied followed by a compressive dressing. The patient was then moved from the operating room to the recovery room in good condition, having tolerated the procedure well. /[id number]/MODL MTDD
[2017-06-11] MEDS ORDERED: NON-FORMULARY NEW DRUG (Exenatide Microspheres [Bydureon Pen] 2 MG) SQ SCH (12:33)
--- NOTE | 2017-06-12 13:01 | GDS ---
[f rep st] DISCHARGE SUMMARY ADMISSION DIAGNOSIS: Right knee osteoarthritis. DISCHARGE DIAGNOSIS: Right knee osteoarthritis. PROCEDURE: Right total knee arthroplasty, robot-assisted. VTE PROPHYLAXIS: Aspirin recommended, 3 weeks daily. BRIEF DESCRIPTION OF HOSPITAL STAY: The patient was admitted for an elective joint arthroplasty. T he patient tolerated the procedure well and has passed physical therapy. The patient was given appr opriate antibiotic prophylaxis and venous thromboembolism prophylaxis. The patient's pain was well controlled on oral pain medication. The patient was holding down food and had urinated. The decision was made to discharge the patient. The patient was given postoperative prescriptions p reoperatively. PLAN: Follow up as scheduled, Dr. Apple's office. /[id number]/MODL
== END 2017-06-11 11:22 | disposition home or self-care (01) | DRG 470 ==
LOC: F3E 09:13 → F3N 14:25
PROVIDERS: ADMIT Orthopaedic Surgery; ATTEND Orthopaedic Surgery
PROC: 8E0YXBZ Computer Assisted Procedure of Lower Extremity (ICD-10-PCS; principal; 2017-06-10 11:15)
PROC: 8E0YXCZ Robotic Assisted Procedure of Lower Extremity (ICD-10-PCS; principal; 2017-06-10 11:15)
PROC: 0SRC0J9 Replacement of Right Knee Joint with Synthetic Substitute, Cemented, Open Approach (ICD-10-PCS; principal; 2017-06-10 11:15)
DX: M17.11 Unilateral primary osteoarthritis, right knee (principal); I10 Essential (primary) hypertension; E11.9 Type 2 diabetes mellitus without complications; F32.9 Major depressive disorder, single episode, unspecified; Z79.4 Long term (current) use of insulin
CPT/HCPCS: 97116-GP; 97161-GP; 97165-GO; C1713; J0171; J0690; J1100; J1815; J1885; J2250; J2704; J2795; J3370

== ENCOUNTER → 2018-09-27 | Outpatient (CLI) | payer OTHER | LOC: BMCIMAGING 16:48 | PROVIDERS: ATTEND Internal Medicine | DX: J45.909 Unspecified asthma, uncomplicated (principal); I51.7 Cardiomegaly ==